=== PATIENT | male | born 1945 | race Caucasian/White ===

== ENCOUNTER → 2016-10-20 | Outpatient (REF) | payer MEDICARE ==
[~2016-10-20] MED LIST: /PANT40TA; ACET65TA; AVOD0.5C; BABY81CH; INSULIN LANTUS; KEFL250C; LISI20TA5; METO25TA2; METO5TAB2; NEOSSOL; NOVOINJ3; SIMV10TA2; THERGRAN; ZEST20TA4; ZOCO10TA
== END ==
LOC: M LABDRAWP 11:25
PROVIDERS: ATTEND Urology
DX: C61 Malignant neoplasm of prostate (principal)

== ENCOUNTER → 2016-12-21 | Outpatient (CLI) | payer MEDICARE ==
[~2016-12-21] VITALS: Ht 177.8 cm; Wt 86.2 kg
[~2016-12-21] MED LIST changes: +ASPI1TAB24 PO; +FINA5TAB2 PO; +GLIP2.5T2 PO; +LEVE1INJ5 SC; +LR 1,000 ML IV SCH; +METO50TA2 PO; +MULT1TAB10 PO; +PROPOFOL 200 MG/20 ML VIAL As Ordered ONE; +SIMV40TA2 PO; +lisinopril PO
--- NOTE | 2016-12-21 12:14 | ROOR ---
Patient Name: Andrew Ware Procedure Date: 12/21/2016 11:37 AM Date of : 1945 Age: 71 Room: [facility] Gender: Male Note Status: Finalized Procedure: Colonoscopy Indications: High risk colon cancer surveillance: Personal history of non-advanced adenoma, Last colonoscopy: October 2011 Providers: Job Avitia MD Referring MD: Mann Brasher MD Requesting Provider: Medicines: Monitored Anesthesia Care Complications: No immediate complications. Procedure: Pre-Anesthesia Assessment: - Prior to the procedure, a History and Physical was performed, and patient medications and allergies were reviewed. The patient is competent. The risks and benefits of the procedure and the sedation options and risks were discussed with the patient. All questions were answered and informed consent was obtained. Patient identification and proposed procedure were verified by the physician, the nurse and the anesthesiologist in the procedure room. Mental Status Examination: alert and oriented. Airway Examination: normal oropharyngeal airway and neck mobility. CV Examination: regular rate and rhythm. Prophylactic Antibiotics: The patient does not require prophylactic antibiotics. Prior Anticoagulants: The patient has taken no previous anticoagulant or antiplatelet agents. ASA Grade Assessment: II - A patient with mild systemic disease. After reviewing the risks and benefits, the patient was deemed in satisfactory condition to undergo the procedure. The anesthesia plan was to use monitored anesthesia care (MAC). Immediately prior to administration of medications, the patient was re-assessed for adequacy to receive sedatives. The heart rate, respiratory rate, oxygen saturations, blood pressure, adequacy of pulmonary ventilation, and response to care were monitored throughout the procedure. The physical status of the patient was re-assessed after the procedure. The Colonoscope was introduced through the anus and advanced to the cecum, identified by appendiceal orifice and ileocecal valve. The colonoscopy was performed without difficulty. The patient tolerated the procedure well. The quality of the bowel preparation was excellent. Findings: The perianal and digital rectal examinations were normal. A 3 mm polyp was found in the distal transverse colon. The polyp was sessile. The polyp was removed with a jumbo cold forceps. Resection and retrieval were complete. The exam was otherwise without abnormality. Impression: - One 3 mm polyp in the distal transverse colon, removed with a jumbo cold forceps. Resected and retrieved. - The examination was otherwise normal. Recommendation: - Discharge patient to home. - Resume previous diet. - Continue present medications. - Await pathology results. - Telephone endoscopist for pathology results in 10 days. Job Avitia MD 12/21/2016 12:14:06 PM Number of Addenda: 0 Note Initiated On: 12/21/2016 11:37 AM Estimated Blood Loss: Estimated blood loss was minimal.
[2016-12-21 12:35] VITALS: BP 147/92
== END | disposition home or self-care (01) ==
LOC: M OPP 10:20
PROVIDERS: ATTEND Surgery
DX: Z12.11 Encounter for screening for malignant neoplasm of colon (principal); D12.3 Benign neoplasm of transverse colon; I10 Essential (primary) hypertension; E11.9 Type 2 diabetes mellitus without complications; E78.00 Pure hypercholesterolemia, unspecified; K21.9 Gastro-esophageal reflux disease without esophagitis; Z79.899 Other long term (current) drug therapy; Z79.82 Long term (current) use of aspirin

== ENCOUNTER → 2017-01-31 | Outpatient (REF) | payer MEDICARE ==
[~2017-01-31] MED LIST changes: -LR 1,000 ML IV SCH; -PROPOFOL 200 MG/20 ML VIAL As Ordered ONE
[2017-01-31 12:16] LABS: MEAN CORPUSCULAR HEMOGLOBIN 29.4 pg (27.0-33.0); MEAN CORPUSCULAR HGB CONC 33.4 g/dl (32.0-36.5); MEAN CORPUSCULAR VOLUME 88.2 fl (80.0-96.0); RED CELL DISTRIBUTION WIDTH 13.7 % (11.5-14.5); WHITE BLOOD COUNT 6.6 K/mm3 (4.0-10.0)
[2017-01-31 12:38] LABS: ALBUMIN 3.4 GM/DL (3.2-5.2); ALBUMIN/GLOBULIN RATIO 1.17 (1.00-1.93); ALKALINE PHOSPHATASE 75 U/L (45-117); ALT/SGPT 13 U/L (12-78); ANION GAP 9 MEQ/L (8-16); AST/SGOT 21 U/L (15-37); BILIRUBIN,TOTAL 1.5 MG/DL (0.2-1.0); BLOOD UREA NITROGEN 25 MG/DL (7-18); CALCIUM LEVEL 8.9 MG/DL (8.8-10.2); CARBON DIOXIDE LEVEL 30 MEQ/L (21-32); CHLORIDE LEVEL 102 MEQ/L (98-107); GLOMERULAR FILTRATION RATE > 60.0 (>42); GLUCOSE, FASTING 180 MG/DL (83-110); POTASSIUM SERUM 4.1 MEQ/L (3.5-5.1); SODIUM LEVEL 141 MEQ/L (136-145); TOTAL PROTEIN 6.3 GM/DL (6.4-8.2)
== END ==
LOC: M SFHCPLAZ 08:10
PROVIDERS: ATTEND Internal Medicine
DX: I10 Essential (primary) hypertension (principal); Z85.46 Personal history of malignant neoplasm of prostate; E11.9 Type 2 diabetes mellitus without complications

== ENCOUNTER → 2017-03-11 | Outpatient (REF) | payer MEDICARE ==
[~2017-03-11] MED LIST changes: +ASPI-161 PO; -ASPI1TAB24 PO; -METO50TA2 PO; +METO50TA7 PO
[2017-03-11 11:43] LABS: MEAN CORPUSCULAR HEMOGLOBIN 29.5 pg (27.0-33.0); MEAN CORPUSCULAR HGB CONC 34.1 g/dl (32.0-36.5); MEAN CORPUSCULAR VOLUME 86.3 fl (80.0-96.0); RED CELL DISTRIBUTION WIDTH 13.8 % (11.5-14.5); WHITE BLOOD COUNT 6.4 K/mm3 (4.0-10.0)
[2017-03-11 11:44] LABS: ANION GAP 7 MEQ/L (8-16); BLOOD UREA NITROGEN 23 MG/DL (7-18); CALCIUM LEVEL 9.1 MG/DL (8.8-10.2); CARBON DIOXIDE LEVEL 31 MEQ/L (21-32); CHLORIDE LEVEL 106 MEQ/L (98-107); CREATININE FOR GFR 0.99 MG/DL (0.70-1.30); GLOMERULAR FILTRATION RATE > 60.0 (>42); GLUCOSE, FASTING 138 MG/DL (83-110); POTASSIUM SERUM 4.1 MEQ/L (3.5-5.1); SODIUM LEVEL 144 MEQ/L (136-145)
== END ==
LOC: M SFHCPLAZ 08:50
PROVIDERS: ATTEND Internal Medicine
DX: Z01.818 Encounter for other preprocedural examination (principal); Z85.46 Personal history of malignant neoplasm of prostate; I10 Essential (primary) hypertension; N20.0 Calculus of kidney

== ENCOUNTER → 2017-06-23 | Outpatient (REF) | payer MEDICARE ==
[2017-06-23 12:21] LABS: MEAN CORPUSCULAR HEMOGLOBIN 28.7 pg (27.0-33.0); MEAN CORPUSCULAR HGB CONC 33.1 g/dl (32.0-36.5); MEAN CORPUSCULAR VOLUME 86.7 fl (80.0-96.0); RED CELL DISTRIBUTION WIDTH 13.3 % (11.5-14.5)
[2017-06-23 12:57] LABS: ALBUMIN 3.4 GM/DL (3.2-5.2); ALBUMIN/GLOBULIN RATIO 1.06 (1.00-1.93); ALKALINE PHOSPHATASE 72 U/L (45-117); ALT/SGPT 12 U/L (12-78); ANION GAP 5 MEQ/L (8-16); AST/SGOT 16 U/L (15-37); BILIRUBIN,TOTAL 1.3 MG/DL (0.2-1.0); BLOOD UREA NITROGEN 26 MG/DL (7-18); CALCIUM LEVEL 9.1 MG/DL (8.8-10.2); CARBON DIOXIDE LEVEL 33 MEQ/L (21-32); CHLORIDE LEVEL 103 MEQ/L (98-107); CHOLESTEROL LEVEL 198 MG/DL (<200); CREATININE FOR GFR 1.13 MG/DL (0.70-1.30); GLOMERULAR FILTRATION RATE > 60.0 (>42); GLUCOSE, FASTING 114 MG/DL (83-110); MAGNESIUM LEVEL 1.9 MG/DL (1.8-2.4); POTASSIUM SERUM 4.3 MEQ/L (3.5-5.1); SODIUM LEVEL 141 MEQ/L (136-145); TOTAL PROTEIN 6.6 GM/DL (6.4-8.2); TRIGLYCERIDES LEVEL 180 MG/DL (<150)
== END ==
LOC: M SFHCPLAZ 08:18
PROVIDERS: ATTEND Internal Medicine
DX: E11.29 Type 2 diabetes mellitus with other diabetic kidney complication (principal); E78.00 Pure hypercholesterolemia, unspecified; I10 Essential (primary) hypertension; Z85.46 Personal history of malignant neoplasm of prostate

== ENCOUNTER → 2018-01-12 | Outpatient (REF) | payer MEDICARE ==
[2018-01-12 12:03] LABS: HEMATOCRIT 32.6 % (42.0-52.0); HEMOGLOBIN 10.8 g/dl (13.5-17.5); MEAN CORPUSCULAR HEMOGLOBIN 28.8 pg (27.0-33.0); MEAN CORPUSCULAR HGB CONC 33.1 g/dl (32.0-36.5); MEAN CORPUSCULAR VOLUME 86.9 fl (80.0-96.0); PLATELET COUNT, AUTOMATED 199 10^3/uL (150-450); RED BLOOD COUNT 3.75 10^6/uL (4.30-6.10); RED CELL DISTRIBUTION WIDTH 12.8 % (11.5-14.5); WHITE BLOOD COUNT 6.8 10^3/uL (4.0-10.0)
[2018-01-12 12:43] LABS: ALBUMIN 3.2 GM/DL (3.2-5.2); ALBUMIN/GLOBULIN RATIO 1.07 (1.00-1.93); ALKALINE PHOSPHATASE 64 U/L (45-117); ALT/SGPT 12 U/L (12-78); ANION GAP 5 MEQ/L (8-16); AST/SGOT 19 U/L (7-37); BILIRUBIN,TOTAL 0.9 MG/DL (0.2-1.0); BLOOD UREA NITROGEN 26 MG/DL (7-18); CALCIUM LEVEL 8.7 MG/DL (8.8-10.2); CARBON DIOXIDE LEVEL 29 MEQ/L (21-32); CHLORIDE LEVEL 107 MEQ/L (98-107); CHOLESTEROL LEVEL 122 MG/DL (<200); CHOLESTEROL RISK RATIO 2.711 (<5); GLOMERULAR FILTRATION RATE > 60.0 (>42); GLUCOSE, FASTING 144 MG/DL (70-100); HDL CHOLESTEROL 45 MG/DL (>40); LDL CHOLESTEROL 55.6 MG/DL (<100); MAGNESIUM LEVEL 1.9 MG/DL (1.8-2.4); NON-HDL-C 77 MG/DL; SODIUM LEVEL 141 MEQ/L (136-145); TOTAL PROTEIN 6.2 GM/DL (6.4-8.2); TRIGLYCERIDES LEVEL 107 MG/DL (<150)
[2018-01-12 14:15] LABS: ESTIMATED AVERAGE GLUCOSE 151 MG/DL (60-110); HEMOGLOBIN A1c 6.9 %
[2018-01-12 16:21] LABS: AMORPHOUS SEDIMENT LARGE (NEGATIVE); APPEARANCE, URINE TURBID (CLEAR); BACTERIA, URINE AUTO 1+ (NEGATIVE); BILIRUBIN, URINE AUTO NEGATIVE (NEGATIVE); BLOOD, URINE BLOOD NEGATIVE (NEGATIVE); CALCIUM OXALATE CRYSTALS MODERATE; COLOR, URINE AMBER (YELLOW); GLUCOSE, URINE (UA) AUTO NEGATIVE (NEGATIVE); KETONE, URINE AUTO NEGATIVE (NEGATIVE); LEUKOCYTE ESTERASE, URINE AUTO NEGATIVE (NEGATIVE); MUCUS, URINE SMALL (NEGATIVE); NITRITE, URINE AUTO NEGATIVE (NEGATIVE); PROTEIN, URINE AUTO 2+ mg/dL (NEGATIVE); RBC, URINE AUTO 1 /HPF (0-3); SQUAMOUS EPITHELIAL CELL UR AU 0 /HPF (0-6); UROBILINOGEN, URINE AUTO 0.2 mg/dL (0.0-2.0); WBC, URINE AUTO 3 /HPF (0-3)
[2018-01-12 16:56] LABS: MAU/CREAT RATIO 148.5 MCG/MG (0.0-30.0)
== END ==
LOC: M SFHCPLAZ 08:46
DX: Z86.010 Personal history of colon polyps (principal); K21.9 Gastro-esophageal reflux disease without esophagitis; I10 Essential (primary) hypertension; E11.29 Type 2 diabetes mellitus with other diabetic kidney complication; E78.00 Pure hypercholesterolemia, unspecified; R80.9 Proteinuria, unspecified
CPT/HCPCS: 83735

== ENCOUNTER → 2018-02-21 | Outpatient (REF) | payer MEDICARE | LOC: M LABDRAWP 11:49 | DX: Z85.46 Personal history of malignant neoplasm of prostate (principal); R31.0 Gross hematuria | CPT/HCPCS: 84153 ==

== ENCOUNTER → 2018-02-21 | Outpatient (REF) | payer MEDICARE | LOC: M SFHCPLAZ 09:11 | DX: Z85.46 Personal history of malignant neoplasm of prostate (principal); I10 Essential (primary) hypertension; E11.29 Type 2 diabetes mellitus with other diabetic kidney complication ==

== ENCOUNTER → 2018-07-24 | Outpatient (REF) | payer MEDICARE ==
[2018-07-24 12:03] LABS: HEMATOCRIT 35.3 % (42.0-52.0); HEMOGLOBIN 11.6 g/dl (13.5-17.5); MEAN CORPUSCULAR HEMOGLOBIN 28.9 pg (27.0-33.0); MEAN CORPUSCULAR HGB CONC 32.9 g/dl (32.0-36.5); PLATELET COUNT, AUTOMATED 214 10^3/uL (150-450); RED BLOOD COUNT 4.01 10^6/uL (4.30-6.10); RED CELL DISTRIBUTION WIDTH 12.8 % (11.5-14.5); WHITE BLOOD COUNT 8.6 10^3/uL (4.0-10.0)
[2018-07-24 12:21] LABS: ALBUMIN 3.2 GM/DL (3.2-5.2); ALBUMIN/GLOBULIN RATIO 0.97 (1.00-1.93); ALKALINE PHOSPHATASE 81 U/L (45-117); ALT/SGPT 13 U/L (12-78); ANION GAP 8 MEQ/L (8-16); AST/SGOT 16 U/L (7-37); BILIRUBIN,TOTAL 0.9 MG/DL (0.2-1.0); BLOOD UREA NITROGEN 29 MG/DL (7-18); CALCIUM LEVEL 8.5 MG/DL (8.8-10.2); CARBON DIOXIDE LEVEL 28 MEQ/L (21-32); CHLORIDE LEVEL 105 MEQ/L (98-107); CREATININE FOR GFR 1.41 MG/DL (0.70-1.30); GLOMERULAR FILTRATION RATE 52.5 (>42); GLUCOSE, FASTING 149 MG/DL (70-100); MAGNESIUM LEVEL 1.9 MG/DL (1.8-2.4); POTASSIUM SERUM 4.2 MEQ/L (3.5-5.1); SODIUM LEVEL 141 MEQ/L (136-145); TOTAL PROTEIN 6.5 GM/DL (6.4-8.2)
[2018-07-24 12:52] LABS: MAU/CREAT RATIO 134.6 MCG/MG (0.0-30.0)
[2018-07-24 14:56] LABS: ESTIMATED AVERAGE GLUCOSE 163 MG/DL (60-110); HEMOGLOBIN A1c 7.3 %
== END ==
LOC: M SFHCPLAZ 08:44
DX: Z85.46 Personal history of malignant neoplasm of prostate (principal); I10 Essential (primary) hypertension; E11.29 Type 2 diabetes mellitus with other diabetic kidney complication
CPT/HCPCS: 83735

== ENCOUNTER → 2018-07-24 | Outpatient (REF) | payer MEDICARE ==
[2018-07-24 12:19] LABS: PROSTATIC SPECIFIC AG MONITOR 0.1 NG/ML (< 4.0)
== END ==
LOC: M LABDRAWP 08:47
DX: Z85.46 Personal history of malignant neoplasm of prostate (principal)
CPT/HCPCS: 83735; 84153

== ENCOUNTER → 2019-02-01 | Outpatient (REF) | payer MEDICARE ==
[~2019-02-01] MED LIST changes: -/PANT40TA; +PROT1TAB2
== END ==
LOC: M LABDRAWP 11:38
PROVIDERS: ATTEND Nurse Practitioner Family
DX: Z85.46 Personal history of malignant neoplasm of prostate (principal)

== ENCOUNTER → 2019-04-20 | Outpatient (CLI) | payer MEDICARE ==
[~2019-04-20] MED LIST changes: -SIMV40TA2 PO; +SIMV40TA20 PO
[2019-04-20 19:31] LABS: BASO # 0.1 10^3/uL (0.0-0.2); BASO % 0.6 % (0.0-1.0); EOS # 0.1 10^3/uL (0.0-0.50); EOS % 1.7 % (0.0-3.0); HEMATOCRIT 35.3 % (42.0-52.0); HEMOGLOBIN 11.5 g/dl (13.5-17.5); LYMPH # 1.9 10^3/uL (1.5-4.5); LYMPH % 23.6 % (24.0-44.0); MEAN CORPUSCULAR HEMOGLOBIN 28.8 pg (27.0-33.0); MEAN CORPUSCULAR HGB CONC 32.6 g/dl (32.0-36.5); MEAN CORPUSCULAR VOLUME 88.5 fl (80.0-96.0); MONO # 0.6 10^3/uL (0.0-0.8); MONO % 6.9 % (0.0-5.0); NEUTROPHILS # 5.4 10^3/uL (1.8-7.7); PLATELET COUNT, AUTOMATED 190 10^3/uL (150-450); RED BLOOD COUNT 3.99 10^6/uL (4.30-6.10)
[2019-04-20 19:37] LABS: ALBUMIN 3.5 GM/DL (3.2-5.2); ALT/SGPT 14 U/L (12-78); BLOOD UREA NITROGEN 34 MG/DL (7-18); CALCIUM LEVEL 9.5 MG/DL (8.8-10.2); CARBON DIOXIDE LEVEL 29 MEQ/L (21-32); CHLORIDE LEVEL 105 MEQ/L (98-107); CREATININE FOR GFR 1.97 MG/DL (0.70-1.30); FREE T4 1.21 NG/DL (0.76-1.46); GLOMERULAR FILTRATION RATE 35.6 (>42); GLUCOSE, FASTING 195 MG/DL (70-100); POTASSIUM SERUM 4.1 MEQ/L (3.5-5.1); SODIUM LEVEL 141 MEQ/L (136-145); THYROID STIMULATING HORMONE 0.379 uIU/ML (0.358-3.740); TOTAL PROTEIN 6.7 GM/DL (6.4-8.2)
[2019-04-20 19:47] LABS: MONO REFLEX EBV COMP NEGATIVE (NEGATIVE)
[2019-04-24 00:06] LABS: EBV AB TO NUCLEAR ANTIGEN 32.8 U/mL (0.0-17.9); EBV VIRAL CAPSID AG IgG >600.0 U/mL (0.0-17.9); EBV VIRAL CAPSID AG IgM 45.2 U/mL (0.0-35.9); Lyme Disease IgG/IgM Antibodie <0.91 ISR (0.00-0.90); Lyme Disease IgM Ab Quantitati <0.80 index (0.00-0.79)
== END ==
LOC: M LABDRWAD 16:38
PROVIDERS: ATTEND Physician Assistant Medical
DX: R42 Dizziness and giddiness (principal); Z79.899 Other long term (current) drug therapy

== ENCOUNTER → 2019-04-27 | Outpatient (CLI) | payer MEDICARE ==
[~2019-04-27] MED LIST changes: +SIMV40TA2 PO; -SIMV40TA20 PO
--- NOTE | 2019-04-27 12:44 | REP ---
MRI of the brain without contrast Clinical indication: Disorientation, visual changes. Comparison: None Technique: MRI of the brain was performed without contrast utilizing sagittal T1 FLAIR, axial DWI, axial T2, axial FLAIR, axial T1 and axial GRE sequences. Findings: There is DWI hyperintense signal with associated T2 signal abnormality within the right parietal region out of proportion to degree of hypointensity on ADC maps, likely representing subacute infarction. There is gyri swelling and effacement of the overlying sulci. There is no midline shift. The basal cisterns are patent. The visualized flow voids are patent. There is minimal susceptibility artifact and associated T1 hyperintensity along the anterior margin of the infarct consistent with a small component of hemorrhage. There are tiny chronic lacunar infarcts within both cerebellar hemispheres. There is minimal periventricular capping. There is no extra-axial fluid collection. The right [place] ocular lens has been removed. There is a minimal T2 opacification of the right left frontal ethmoid air cells. There is a tiny mucous retention cyst or polyp within the right maxillary sinus and trace fluid within the right mastoid air cells. Impression: 1. Findings consistent with subacute right parietal infarct with mild local mass effect. No midline shift. Evidence of minimal linear hemorrhage along the anterior margin of the infarct. Findings reported to and acknowledged by Dr. Mann Brasher at 12:35 P.M. on 04/27/2019. 2. Chronic cerebellar lacunar infarcts. Electronically Signed by Sonia Pena MD 04/27/2019 12:35 P
== END ==
LOC: M PLARAD 09:22
PROVIDERS: ATTEND Internal Medicine
DX: R41.0 Disorientation, unspecified (principal); H53.9 Unspecified visual disturbance

== ENCOUNTER → 2019-04-30 | Outpatient (REF) | payer MEDICARE ==
[2019-04-30 12:41] LABS: ALBUMIN 3.3 GM/DL (3.2-5.2); BILIRUBIN,TOTAL 0.9 MG/DL (0.2-1.0); CALCIUM LEVEL 9.1 MG/DL (8.8-10.2); CREATININE FOR GFR 1.76 MG/DL (0.70-1.30); GLOMERULAR FILTRATION RATE 40.5 (>42); POTASSIUM SERUM 4.5 MEQ/L (3.5-5.1); TOTAL PROTEIN 6.5 GM/DL (6.4-8.2)
== END ==
LOC: M SFHCADAM 08:55
PROVIDERS: ATTEND Internal Medicine
DX: E11.29 Type 2 diabetes mellitus with other diabetic kidney complication (principal)

== ENCOUNTER → 2019-05-02 | Outpatient (CLI) | payer MEDICARE ==
--- NOTE | 2019-05-02 17:52 | REP ---
Bilateral carotid artery duplex ultrasound: Peak flow velocity analysis: RIGHT LEFT ICA Peak flow velocity cm/sec 70.4 59.7 ICA Diastolic flow velocity cm/sec 29.3 26.9 ICA/CCA Ratio 0.95 0.57 ECA Peak flow velocity cm/sec 45.9 59 CCA Peak flow velocity cm/sec 74 103.9 There is shallow atheromatous plaque in the bulbs bilaterally and there is shallow atheromatous plaque in the proximal internal carotid arteries bilaterally. The peak flow velocities are normal bilaterally. The findings indicate that there is less than 50% luminal narrowing bilaterally. There is no significant stenosis on the right on the left. There is antegrade flow in the vertebral arteries bilaterally. Electronically Signed by Won Rocha MD 05/02/2019 05:43 P
== END ==
LOC: M RAD 15:53
PROVIDERS: ATTEND Internal Medicine
DX: Z86.73 Personal history of transient ischemic attack (TIA), and cerebral infarction without residual deficits (principal)

== ENCOUNTER → 2019-07-11 | Outpatient (CLI) | payer MEDICARE ==
--- NOTE | 2019-07-11 18:43 | REP ---
PET/CT: History: Solitary pulmonary nodule. Comparisons: Comparison chest CT study is reviewed from June 26, 2019. TECHNIQUE: 49 minutes following the intravenous injection of a 8.97 mCi dose of F-18 FDG, three-dimensional PET scintigraphy is acquired from the skull base to the proximal thighs. Triplanar noncontrast CT scanning is acquired through the same anatomic range for attenuation correction, and image registration with scan parameters optimized to minimize radiation exposure to the patient. PET scintigraphy and CT datasets were fused and displayed on a workstation with multiplanar and projection display capability. PET/CT Findings: The recently identified nodule in the right upper lobe shows no discernible FDG accumulation. Maximum standard uptake value is 0.79. No other abnormal hypermetabolic pulmonary parenchymal uptake is seen. No abnormal hilar or mediastinal hypermetabolic uptake is observed. There is valvular calcification in the aortic valve. Head and neck soft tissues are unremarkable. In the abdomen and pelvis, there is no abnormal hypermetabolic uptake. Impression: Negative PET scintigraphy. The nodule identified in the right upper lobe is not hypermetabolic. CT followup is recommended. Electronically Signed by Jose A Swain MD 07/11/2019 07:11 P
== END ==
LOC: M PLARAD 10:14
PROVIDERS: ATTEND Internal Medicine
DX: R91.1 Solitary pulmonary nodule (principal)
CPT/HCPCS: 78815; A9552

== ENCOUNTER → 2019-08-13 | Outpatient (REF) | payer MEDICARE ==
[~2019-08-13] MED LIST changes: -SIMV40TA2 PO; +SIMV40TA20 PO
[2019-08-13 13:04] LABS: CALCIUM LEVEL 8.5 MG/DL (8.8-10.2); CREATININE FOR GFR 1.62 MG/DL (0.70-1.30); GLOMERULAR FILTRATION RATE 44.6 (>42); POTASSIUM SERUM 3.8 MEQ/L (3.5-5.1)
== END ==
LOC: M LABDRWAD 12:37
DX: S37.001A Unspecified injury of right kidney, initial encounter (principal)

== ENCOUNTER → 2019-09-26 | Outpatient (REF) | payer MEDICARE ==
[~2019-09-26] MED LIST changes: +CARV25TA PO; +CHLO125TA PO; +FLOM0.4C39 PO; +GLIP10TA PO; +GLUC500T PO; +LOMO2.5T PO; +METF-954 PO; +PAXI20TA29 PO; +PLAV1TAB2 PO
== END ==
LOC: M LABDRWAD 13:45
PROVIDERS: ATTEND Urology
DX: Z85.46 Personal history of malignant neoplasm of prostate (principal)

== ENCOUNTER → 2019-10-02 | Outpatient (REF) | payer MEDICARE ==
[~2019-10-02] MED LIST changes: -CARV25TA PO; -CHLO125TA PO; -FLOM0.4C39 PO; -GLIP10TA PO; -GLUC500T PO; -LOMO2.5T PO; -METF-954 PO; -PAXI20TA29 PO; -PLAV1TAB2 PO
[2019-10-02 17:18] LABS: CALCIUM LEVEL 8.9 MG/DL (8.8-10.2); CREATININE FOR GFR 1.69 MG/DL (0.70-1.30); GLOMERULAR FILTRATION RATE 42.4 (>42); POTASSIUM SERUM 4.3 MEQ/L (3.5-5.1)
[2019-10-02 17:23] LABS: BASO # 0.1 10^3/uL (0.0-0.2); BASO % 0.9 % (0.0-1.0); EOS # 0.2 10^3/uL (0.0-0.5); EOS % 3.3 % (0.0-3.0); HEMATOCRIT 29.6 % (42.0-52.0); HEMOGLOBIN 9.3 g/dl (13.5-17.5); LYMPH # 1.1 10^3/uL (1.5-5.0); MEAN CORPUSCULAR HEMOGLOBIN 27.8 pg (27.0-33.0); MEAN CORPUSCULAR HGB CONC 31.4 g/dl (32.0-36.5); MEAN CORPUSCULAR VOLUME 88.6 fl (80.0-96.0); MONO # 0.5 10^3/uL (0.0-0.8); MONO % 6.9 % (0.0-5.0); NEUTROPHILS # 4.8 10^3/uL (1.5-8.5); NEUTROPHILS % 72.6 % (36.0-66.0); PLATELET COUNT, AUTOMATED 142 10^3/uL (150-450); RED BLOOD COUNT 3.34 10^6/uL (4.30-6.10); WHITE BLOOD COUNT 6.6 10^3/uL (4.0-10.0)
== END ==
LOC: M LABDRWAD 16:41
PROVIDERS: ATTEND Internal Medicine Interventional Cardiology
DX: E78.5 Hyperlipidemia, unspecified (principal); I15.9 Secondary hypertension, unspecified

== ENCOUNTER 2019-10-18 12:31 | Outpatient (RCR) | payer MEDICARE ==
[~2019-10-18 12:31] MED LIST changes: -CARV25TA PO; -CHLO125TA PO; -FLOM0.4C39 PO; -GLIP10TA PO; -GLUC500T PO; -LOMO2.5T PO; -METF-954 PO; -PAXI20TA29 PO; -PLAV1TAB2 PO
[2019-10-18] MEDS ORDERED: CARV25TA PO (15:17)
[2019-10-18] MEDS ORDERED: CHLO125TA PO (15:17)
[2019-10-18] MEDS ORDERED: LOMO2.5T PO (15:17)
[2019-10-18] MEDS ORDERED: GLUC500T PO (15:17)
[2019-10-18] MEDS ORDERED: PAXI20TA29 PO (15:17)
[2019-10-18] MEDS ORDERED: GLIP10TA PO (15:17)
[2019-10-18] MEDS ORDERED: METF-954 PO (15:17)
[2019-10-18] MEDS ORDERED: PLAV1TAB2 PO (15:17)
[2019-10-18] MEDS ORDERED: FLOM0.4C39 PO (15:17)
--- NOTE | 2019-10-18 15:55 | CARECAPL ---
Assessment Account #s: Initial Assessment General Diagnoses: AVR Date of event: Oct 03, 2019 Physician: Freddy Malik Allergies: Coded Allergies: No Known Allergies (Verified , 12/14/16) Date Entered Program: Oct 18, 2019 Risk strat for cardiac event: High Exercise Date: Oct 18, 2019 Assessment: Initial Assessment Stages of change: Contemplate Exercise Prescription Plan TO EDUCATE AND BUILD ENDURANCE THROUGH MONITORED EXERCISE PROGRAM Modalities initiated: Treadmill (WILL ADD), Cardio-Strider (WILL ADD), Nustep (WILL ADD), Arm Aerometer (WILL ADD), Dumbells (WILL ADD), Recumbent Bike (WILL ADD) Frequency: 3 Duration (Minutes) 30 - 60 minutes total exercise a day. 15 - 20 work intervals in minutes. PRN rest intervals in minutes. Functional Capacity Goal Sustained Metabolic Equivalent of a task (MET) goal of 2.5-3.5 for 15-20 minutes. Intensity: 3-Moderate Progression (METS) Increase by: 0.5 METS every: 5 sessions TOLERATED Angina with ex: No Target Heart Rate REST + 35-40 Resistance Training: Yes Weight (pounds): 2 Reps: 8-12 Hypertension: Yes (CARVEDILOL) Hypertension controlled with: Medication Resting 159/71 Medications Scheduled Aspirin (Aspirin EC), 81 MG PO DAILY, (Reported) Carvedilol (Carvedilol), 25 MG PO BID, (Reported) Chlorthalidone (Chlorthalidone), 25 MG PO DAILY, (Reported) Clopidogrel Bisulfate (Plavix), 75 MG PO DAILY, (Reported) Finasteride (Finasteride), 5 MG PO DAILY, (Reported) Glipizide (Glipizide), 10 MG PO DAILY, (Reported) Insulin Detemir (Levemir Flextouch), 40 UNITS SC QAM, (Reported) Metformin HCl (Glucophage), 750 MG PO DAILY, (Reported) Paroxetine HCl (Paxil), 1 TAB PO DAILY, (Reported) Simvastatin (Simvastatin), 40 MG PO DAILY, (Reported) Tamsulosin HCl (Flomax), 1 CAP PO DAILY, (Reported) Scheduled PRN Diphenoxylate HCl/Atropine (Lomotil 2.5-0.025 mg Tablet), 1 TAB PO QID PRN for DIARRHEA, (Reported) Miscellaneous Medications Metformin HCl (Metformin HCl), MG PO, (Reported) Discontinued Medications Glipizide/Metformin HCl (Glipizide-Metformin 2.5-500 mg), 2 TAB PO BID, (Reported) Discontinued Reason: PCP discontinued med Metoprolol Tartrate (Metoprolol Tartrate), 50 MG PO DAILY, (Reported) Discontinued Reason: PCP discontinued med Multivitamins (Multivitamin Adults), 1 TAB PO DAILY, (Reported) Discontinued Reason: PCP discontinued med [lisinopril], 1 TAB PO DAILY, (Reported) Discontinued Reason: PCP discontinued med Med Change: No Education Goals Met: No Target Goals Individual exercise Rx (1) BP 140/90 or 130/80 if DM or CKD (1) Aerobic active 30+min 5 days per week (1) Nutrition Date: Oct 18, 2019 Assessment: Initial Assessment Stages of change: Contemplate Lipid- med/supplement SIMVASTATIN Med Change: No Diabetes Diabetes: Yes Fasting Blood Sugar: 212 HbA1c (%): 8.4 Diabetes medication METFORMIN,GLIPIZIDE, AND LEVEMIR INSULIN Monitor Blood Sugar at home: Yes Medication Change: No Random Blood Sugar: 212 Blood sugar in range: No Weight Management Weight (lbs): 194.6 Height (inches): 70 Waist Circumference (Inches): 40 BMI: 27.9 Weight goal: 185 Special Diet: low salt Diet Access Tool: Rate your plate Score: 45 Current Weight (pounds): 194.8 Weight Goal 185 Intervention Parts Runner Consult: No Nurse/patient discussion: Yes Dietary Goals HEART HEALTHY CHOICES/SMALLER PORTIONS Diet Class: Yes (WILL SEE ASSISTANT FINANCE MANAGER WHILE IN PROGRAM) Referral to Diabetes education: No Referral to lipid clinic: No Referral to weight mangement p: No Education Eating Healthy Target goal LDL-C<100 if triglycerides are >200 Non-HDL-C should be <130 (1) LDL-C<70 for high risk patients (4) HbA1c<7% (1) BMI<25 Waist cir<40in M/<35in F (1) Education Date: Oct 18, 2019 Assessment: Initial Assessment Learning Barriers: ready Knowledge Test Score: 8 Stages of change: Contemplate Family Support: Yes Tobacco use: No Quit: >6 months Tobacco Use Smokeless tobacco: No Intervention Referral to smoking cessation: No Individual education and couns: No Tobacco Adjunct: No Education class schedule given: No Attended education classes: No (QUIT SMOKING ) Target Goals Complete cessation of tobacco use (1). Psychosocial Date: Oct 18, 2019 Assessment: Initial Assessment Psych Test (Initial/Discharge) Tool Used: Other (PHQ-9 - DEPRESSION SCALE SENT TO PRIMARY MD, DR. MCKINNEY, WHO RECENTLY INCREASED HIS PAXIL PRESCRIPTION) Score: 24 Stages of change: Contemplate Intervention Physician Consult: No Physician Referral: No Psychotropic medication PAXIL 20 MG DAILY Med Change: No Stress Management Class: No Uses Stress Management Skills: Yes Target Goal Assess presence or absence of depression using a valid screening tool (1). Maximize coping skills (2). Positive support system (2). Patient/Program Goal Preventative Medication: Yes Aspirin, Yes Clopidogrel, Yes Beta blockade, Yes Statin/OTR lipid Lowering Fall Risk Assess: Yes (NOT A FALL RISK) Provider Assessment Session Number: 1 Provider Assessment: Proceed with rehab Gigi Cary RN Oct 18, 2019 15:55
== END 2019-11-10 ==
LOC: M CR 12:31
PROVIDERS: ATTEND Internal Medicine Cardiovascular Disease
DX: Z95.2 Presence of prosthetic heart valve (principal)

== ENCOUNTER → 2019-10-18 | Outpatient (CLI) | payer MEDICARE ==
[~2019-10-18] MED LIST changes: +CARV25TA PO; +CHLO125TA PO; +FLOM0.4C39 PO; +GLIP10TA PO; +GLUC500T PO; +LOMO2.5T PO; +METF-954 PO; +PAXI20TA29 PO; +PLAV1TAB2 PO
[2019-10-18 18:35] LABS: BASO # 0.1 10^3/uL (0.0-0.2); BASO % 0.8 % (0.0-1.0); EOS # 0.2 10^3/uL (0.0-0.5); EOS % 2.3 % (0.0-3.0); HEMATOCRIT 31.6 % (42.0-52.0); HEMOGLOBIN 9.5 g/dl (13.5-17.5); LYMPH # 1.1 10^3/uL (1.5-5.0); LYMPH % 15.2 % (24.0-44.0); MEAN CORPUSCULAR HEMOGLOBIN 26.6 pg (27.0-33.0); MEAN CORPUSCULAR HGB CONC 30.1 g/dl (32.0-36.5); MEAN CORPUSCULAR VOLUME 88.5 fl (80.0-96.0); MONO # 0.5 10^3/uL (0.0-0.8); MONO % 7.1 % (0.0-5.0); NEUTROPHILS # 5.5 10^3/uL (1.5-8.5); NEUTROPHILS % 74.1 % (36.0-66.0); PLATELET COUNT, AUTOMATED 184 10^3/uL (150-450); RED BLOOD COUNT 3.57 10^6/uL (4.30-6.10); WHITE BLOOD COUNT 7.4 10^3/uL (4.0-10.0)
--- NOTE | 2019-10-18 18:52 | REP ---
PA and lateral chest three views including two PA and single lateral views: Comparison is 07/18/2009. The lung gong are clear. Cardiac size is upper normal. There has been an interim transcatheter cardiac valve replacement. The dimitris, mediastinum, skeletal structures are unremarkable. Impression: Essentially negative PA and lateral chest. There has been interim transcatheter cardiac valve replacement. Electronically Signed by Won Rocha MD 10/18/2019 06:45 P
[2019-10-18 18:53] LABS: ERYTHROCYTE SEDIMENTATION RATE 32 mm/hr (0-20)
[2019-10-18 19:01] LABS: ALBUMIN 3.4 GM/DL (3.2-5.2); BILIRUBIN,TOTAL 1.5 MG/DL (0.2-1.0); CALCIUM LEVEL 9.3 MG/DL (8.8-10.2); CREATININE FOR GFR 1.71 MG/DL (0.70-1.30); GLOMERULAR FILTRATION RATE 41.8 (>42); MAGNESIUM LEVEL 2.4 MG/DL (1.8-2.4); POTASSIUM SERUM 3.7 MEQ/L (3.5-5.1); TOTAL PROTEIN 6.5 GM/DL (6.4-8.2)
[2019-10-19 11:33] LABS: PERCENT SATURATION 10.8 % (19.7-50.0)
[2019-10-19 12:41] LABS: FOLATE 11.8 NG/ML
== END ==
LOC: M WUC 17:29
PROVIDERS: ATTEND Internal Medicine Cardiovascular Disease
DX: I50.9 Heart failure, unspecified (principal); I35.9 Nonrheumatic aortic valve disorder, unspecified; D64.9 Anemia, unspecified; Z95.2 Presence of prosthetic heart valve

== ENCOUNTER → 2019-10-26 | Outpatient (REF) | payer MEDICARE ==
[~2019-10-26] MED LIST changes: +CARV25TA PO; +CHLO125TA PO; +FLOM0.4C39 PO; +GLIP10TA PO; +GLUC500T PO; +LOMO2.5T PO; +METF-954 PO; +PAXI20TA29 PO; +PLAV1TAB2 PO
[2019-10-26 13:16] LABS: ALBUMIN 3.3 GM/DL (3.2-5.2); CREATININE FOR GFR 1.67 MG/DL (0.70-1.30); GLOMERULAR FILTRATION RATE 42.9 (>42); MAGNESIUM LEVEL 2.4 MG/DL (1.8-2.4); PHOSPHORUS LEVEL 3.5 MG/DL (2.5-4.9); POTASSIUM SERUM 4.3 MEQ/L (3.5-5.1)
== END ==
LOC: M LABDRWAD 12:47
PROVIDERS: ATTEND Internal Medicine Cardiovascular Disease
DX: I11.0 Hypertensive heart disease with heart failure (principal); I50.9 Heart failure, unspecified

== ENCOUNTER → 2019-11-27 | Outpatient (REF) | payer MEDICARE ==
[2019-11-27 18:10] LABS: CALCIUM LEVEL 8.4 MG/DL (8.8-10.2); CREATININE FOR GFR 1.37 MG/DL (0.70-1.30); GLOMERULAR FILTRATION RATE 53.9 (>42); POTASSIUM SERUM 4.2 MEQ/L (3.5-5.1)
== END ==
LOC: M SHH 17:06
PROVIDERS: ATTEND Thoracic Surgery (Cardiothoracic Vascular Surgery)
DX: I35.0 Nonrheumatic aortic (valve) stenosis (principal)

== ENCOUNTER → 2019-11-29 | Outpatient (REF) | payer MEDICARE ==
[2019-11-29 16:52] LABS: CREATININE FOR GFR 1.73 MG/DL (0.70-1.30); GLOMERULAR FILTRATION RATE 41.2 (>42); POTASSIUM SERUM 4.4 MEQ/L (3.5-5.1)
== END ==
LOC: M SHH 15:45
PROVIDERS: ATTEND Nurse Practitioner
DX: I35.0 Nonrheumatic aortic (valve) stenosis (principal)

== ENCOUNTER → 2019-12-05 | Outpatient (REF) | payer MEDICARE ==
[2019-12-05 13:54] LABS: CALCIUM LEVEL 8.3 MG/DL (8.8-10.2); CREATININE FOR GFR 1.4 MG/DL (0.70-1.30); GLOMERULAR FILTRATION RATE 52.6 (>42); POTASSIUM SERUM 4.6 MEQ/L (3.5-5.1)
== END ==
LOC: M SHH 12:49
PROVIDERS: ATTEND Thoracic Surgery (Cardiothoracic Vascular Surgery)
DX: I35.0 Nonrheumatic aortic (valve) stenosis (principal)

== ENCOUNTER → 2020-01-01 | Outpatient (REF) | payer MEDICARE ==
[2020-01-01 13:02] LABS: HEMATOCRIT 34.3 % (42.0-52.0); HEMOGLOBIN 10.4 g/dl (13.5-17.5); MEAN CORPUSCULAR HEMOGLOBIN 25.3 pg (27.0-33.0); MEAN CORPUSCULAR HGB CONC 30.3 g/dl (32.0-36.5); MEAN CORPUSCULAR VOLUME 83.5 fl (80.0-96.0); PLATELET COUNT, AUTOMATED 238 10^3/uL (150-450); RED BLOOD COUNT 4.11 10^6/uL (4.30-6.10); WHITE BLOOD COUNT 8.2 10^3/uL (4.0-10.0)
[2020-01-01 13:35] LABS: ALBUMIN 2.8 GM/DL (3.2-5.2); CALCIUM LEVEL 9.1 MG/DL (8.8-10.2); CHOLESTEROL RISK RATIO 3.428 (<5); CREATININE FOR GFR 1.59 MG/DL (0.70-1.30); GLOMERULAR FILTRATION RATE 45.4 (>42); MAGNESIUM LEVEL 2.1 MG/DL (1.8-2.4); POTASSIUM SERUM 4.4 MEQ/L (3.5-5.1); TOTAL PROTEIN 6.4 GM/DL (6.4-8.2)
[2020-01-01 13:37] LABS: PTH INTACT 55.1 PG/ML (18.5-88.0)
[2020-01-01 13:58] LABS: MAU/CREAT RATIO 2892.6 MCG/MG (0.0-30.0)
[2020-01-01 14:21] LABS: HEMOGLOBIN A1c 7.2 %
== END ==
LOC: M SFHCADAM 08:48
PROVIDERS: ATTEND Internal Medicine
DX: I12.9 Hypertensive chronic kidney disease with stage 1 through stage 4 chronic kidney disease, or unspecified chronic kidney disease (principal); E11.29 Type 2 diabetes mellitus with other diabetic kidney complication; N18.3 Chronic kidney disease, stage 3 (moderate)

== ENCOUNTER → 2020-01-14 | Outpatient (REF) | payer MEDICARE ==
[2020-01-14 13:29] LABS: ALBUMIN 2.7 GM/DL (3.2-5.2); CALCIUM LEVEL 8.7 MG/DL (8.8-10.2); CREATININE FOR GFR 1.8 MG/DL (0.70-1.30); GLOMERULAR FILTRATION RATE 39.4 (>42); MAGNESIUM LEVEL 2.2 MG/DL (1.8-2.4); PHOSPHORUS LEVEL 3.4 MG/DL (2.5-4.9); POTASSIUM SERUM 4.5 MEQ/L (3.5-5.1)
== END ==
LOC: M LABDRWAD 12:32
PROVIDERS: ATTEND Internal Medicine Cardiovascular Disease
DX: I50.42 Chronic combined systolic (congestive) and diastolic (congestive) heart failure (principal)

== ENCOUNTER → 2020-01-15 | Outpatient (CLI) | payer MEDICARE ==
--- NOTE | 2020-01-15 16:08 | REP ---
CT CHEST WITHOUT IV CONTRAST: CT chest performed without IV contrast. Sagittal and coronal reconstruction images are performed. Comparison made with prior PET/CT 07/11/[address] chest from [facility] 06/26/2019. The 1.1 cm nodule in the right upper lobe is stable. No new nodule is seen. Two calcified granulomas are seen more inferiorly in the right lung. There is some minor interstitial fibrotic scarring in both lower lobes. No consolidating infiltrate is seen. There is mild atherosclerotic calcification of the thoracic aorta with no aneurysm. There is no axillary or mediastinal adenopathy. The heart is normal in size. There is no pleural or pericardial effusion. There are degenerative changes of the spine. Metallic clips are seen in the gallbladder fossa. Bilateral renal cysts are present. IMPRESSION: Stable nodule right upper lobe, 1.1 cm in diameter. No new nodule or adenopathy. Electronically Signed by Won An MD 01/15/2020 04:29 P
== END ==
LOC: M RAD 15:08
PROVIDERS: ATTEND Internal Medicine
DX: R91.8 Other nonspecific abnormal finding of lung field (principal)

== ENCOUNTER → 2020-03-05 | Outpatient (REF) | payer MEDICARE ==
[2020-03-05 13:04] LABS: BASO # 0.1 10^3/uL (0.0-0.2); BASO % 0.7 % (0.0-1.0); EOS # 0.2 10^3/uL (0.0-0.5); EOS % 3.1 % (0.0-3.0); HEMATOCRIT 33.6 % (42.0-52.0); HEMOGLOBIN 10.7 g/dl (13.5-17.5); LYMPH # 1.2 10^3/uL (1.5-5.0); LYMPH % 15.5 % (24.0-44.0); MEAN CORPUSCULAR HEMOGLOBIN 26.5 pg (27.0-33.0); MEAN CORPUSCULAR HGB CONC 31.8 g/dl (32.0-36.5); MEAN CORPUSCULAR VOLUME 83.2 fl (80.0-96.0); MONO # 0.5 10^3/uL (0.0-0.8); NEUTROPHILS # 5.6 10^3/uL (1.5-8.5); NEUTROPHILS % 74.2 % (36.0-66.0); PLATELET COUNT, AUTOMATED 168 10^3/uL (150-450); RED BLOOD COUNT 4.04 10^6/uL (4.30-6.10); WHITE BLOOD COUNT 7.5 10^3/uL (4.0-10.0)
[2020-03-05 13:38] LABS: ALBUMIN 2.7 GM/DL (3.2-5.2); BILIRUBIN,TOTAL 0.8 MG/DL (0.2-1.0); CALCIUM LEVEL 8.5 MG/DL (8.8-10.2); CREATININE FOR GFR 1.79 MG/DL (0.70-1.30); GLOMERULAR FILTRATION RATE 39.6 (>42); MAGNESIUM LEVEL 2.1 MG/DL (1.8-2.4); POTASSIUM SERUM 4.5 MEQ/L (3.5-5.1); TOTAL PROTEIN 5.8 GM/DL (6.4-8.2)
== END ==
LOC: M LABDRWAD 12:20
PROVIDERS: ATTEND Internal Medicine Cardiovascular Disease
DX: I35.9 Nonrheumatic aortic valve disorder, unspecified (principal); I50.32 Chronic diastolic (congestive) heart failure; I11.0 Hypertensive heart disease with heart failure; R94.31 Abnormal electrocardiogram [ECG] [EKG]

== ENCOUNTER → 2020-04-07 | Outpatient (REF) | payer MEDICARE ==
[2020-05-02 21:51] LABS: BASO # 0.1 10^3/uL (0.0-0.2); BASO % 0.7 % (0.0-1.0); EOS # 0.2 10^3/uL (0.0-0.5); EOS % 2.9 % (0.0-3.0); HEMATOCRIT 34.4 % (42.0-52.0); LYMPH # 1.3 10^3/uL (1.5-5.0); LYMPH % 17.8 % (24.0-44.0); MEAN CORPUSCULAR HEMOGLOBIN 27.7 pg (27.0-33.0); MEAN CORPUSCULAR VOLUME 86.6 fl (80.0-96.0); MONO # 0.4 10^3/uL (0.0-0.8); MONO % 5.8 % (0.0-5.0); NEUTROPHILS # 5.3 10^3/uL (1.5-8.5); NEUTROPHILS % 72.5 % (36.0-66.0); PLATELET COUNT, AUTOMATED 172 10^3/uL (150-450); RED BLOOD COUNT 3.97 10^6/uL (4.30-6.10); WHITE BLOOD COUNT 7.3 10^3/uL (4.0-10.0)
[2020-06-13 15:20] LABS: GLUCOSE, FASTING SEE SEPARATE REPORT MG/DL
== END ==
LOC: M LABDRWAD 09:19
PROVIDERS: ATTEND Internal Medicine Cardiovascular Disease
DX: I50.32 Chronic diastolic (congestive) heart failure (principal); R94.31 Abnormal electrocardiogram [ECG] [EKG]; I35.8 Other nonrheumatic aortic valve disorders; I11.0 Hypertensive heart disease with heart failure; Z95.2 Presence of prosthetic heart valve

== ENCOUNTER → 2020-06-10 | Outpatient (REF) | payer MEDICARE ==
[2020-06-10 14:47] LABS: ALBUMIN 2.7 GM/DL (3.2-5.2); CALCIUM LEVEL 8.7 MG/DL (8.8-10.2); CREATININE FOR GFR 1.79 MG/DL (0.70-1.30); GLOMERULAR FILTRATION RATE 39.6 (>42); POTASSIUM SERUM 4.5 MEQ/L (3.5-5.1)
== END ==
LOC: M LABDRWAD 12:38
PROVIDERS: ATTEND Internal Medicine Cardiovascular Disease
DX: I50.42 Chronic combined systolic (congestive) and diastolic (congestive) heart failure (principal); I11.0 Hypertensive heart disease with heart failure; N19 Unspecified kidney failure

== ENCOUNTER → 2020-06-16 | Outpatient (REF) | payer MEDICARE ==
[2020-06-16 19:09] LABS: COMPLEMENT C3 119 MG/DL (90-180); COMPLEMENT C4 22 MG/DL (10-40)
[2020-06-19 15:10] LABS: ANCA-ATYPICAL <1:20 titer (Neg:<1:20); ANTI DS-DNA AB Negative (Negative); CYTOPLASMIC NEUTROP AB ANCA-C <1:20 titer (Neg:<1:20); PERINUCLEAR AB ANCA-P <1:20 titer (Neg:<1:20)
== END ==
LOC: M LAB REF 18:28
PROVIDERS: ATTEND Internal Medicine Nephrology
DX: N18.30 Chronic kidney disease, stage 3 unspecified (principal); R80.9 Proteinuria, unspecified; R31.9 Hematuria, unspecified

== ENCOUNTER → 2020-06-23 | Outpatient (CLI) | payer MEDICARE ==
--- NOTE | 2020-06-26 10:55 | REP ---
LIMITED PELVIC BLADDER SONOGRAPHY HISTORY: Chronic kidney disease stage III. Frequency of urination. FINDINGS: Scanning through the abdominal wall demonstrates mild elevation of the bladder base from enlarged prostate. Prostate diameters on ____ scanning are 4.3 x 3.5 x 3.4 cm. Bladder yancey are smooth. Prevoid bladder volume is calculated at 105 mL. No bladder mass lesion is observed. Complete bladder emptying is observed postvoid. IMPRESSION: Mildly prominent prostate. Otherwise negative. MTDD
--- NOTE | 2020-06-26 13:28 | REP ---
RENAL SONOGRAPHY HISTORY: Chronic kidney disease stage III. Frequency of urination. FINDINGS: Renal cortical echogenicity pattern is normal and contours are smooth. No hydronephrosis is seen. Multiple bilateral renal cysts are observed. Right renal dimensions are 10.7 x 6.4 x 5.4 cm. The left kidney measures 11.9 x 5.3 x 5.6 cm. Left-sided renal cysts include a septated 5.4 cm cyst at the upper pole, a 3.2 cm cyst in the upper pole, and a 0.9 cm cyst in the lower pole. On the right, there are three upper pole cysts visible measuring 0.9, 3.4, and 1.2 cm in greatest diameter respectively. IMPRESSION: Bilateral renal cortical cysts. No mass or hydronephrosis is seen. MTDD
== END ==
LOC: M RAD 11:53
PROVIDERS: ATTEND Internal Medicine Nephrology
DX: N28.1 Cyst of kidney, acquired (principal); N18.32 Chronic kidney disease, stage 3b; R35.0 Frequency of micturition

== ENCOUNTER → 2020-06-23 | Outpatient (REF) | payer MEDICARE ==
[2020-06-23 13:54] LABS: ALBUMIN 2.7 GM/DL (3.2-5.2); CREATININE FOR GFR 2.1 MG/DL (0.70-1.30); GLOMERULAR FILTRATION RATE 32.9 (>42); MAGNESIUM LEVEL 2.3 MG/DL (1.8-2.4); PHOSPHORUS LEVEL 3.2 MG/DL (2.5-4.9); POTASSIUM SERUM 4.7 MEQ/L (3.5-5.1)
== END ==
LOC: M LABDRWAD 12:29
PROVIDERS: ATTEND Internal Medicine Cardiovascular Disease
DX: I50.43 Acute on chronic combined systolic (congestive) and diastolic (congestive) heart failure (principal)

== ENCOUNTER → 2020-07-03 | Outpatient (REF) | payer MEDICARE ==
[2020-07-03 18:41] LABS: CREATININE, URINE 69.5 MG/DL; URINE TOTAL PROTEIN 202.5 MG/DL (0-12)
[2020-07-03 20:23] LABS: CREATININE 24 HOUR, URINE 1077.2 MG/24HR (950-2500); TOTAL PROTEIN 24 HOUR URINE 3138.7 MG/24HR (50-150)
== END ==
LOC: M LAB REF 16:57
PROVIDERS: ATTEND Internal Medicine Nephrology
DX: N18.30 Chronic kidney disease, stage 3 unspecified (principal); R80.9 Proteinuria, unspecified

== ENCOUNTER → 2020-08-01 | Outpatient (REF) | payer MEDICARE ==
[2020-08-01 13:09] LABS: ALBUMIN 2.7 GM/DL (3.2-5.2); CALCIUM LEVEL 8.4 MG/DL (8.8-10.2); CREATININE FOR GFR 1.98 MG/DL (0.70-1.30); GLOMERULAR FILTRATION RATE 35.3 (>42); PHOSPHORUS LEVEL 2.8 MG/DL (2.5-4.9); POTASSIUM SERUM 4.8 MEQ/L (3.5-5.1)
== END ==
LOC: M LABDRWAD 12:41
PROVIDERS: ATTEND Internal Medicine Cardiovascular Disease
DX: I50.42 Chronic combined systolic (congestive) and diastolic (congestive) heart failure (principal)

== ENCOUNTER → 2020-09-03 | Outpatient (REF) | payer MEDICARE ==
[2020-09-03 13:19] LABS: ALBUMIN 2.9 GM/DL (3.2-5.2); CALCIUM LEVEL 8.5 MG/DL (8.8-10.2); CREATININE FOR GFR 2.15 MG/DL (0.70-1.30); GLOMERULAR FILTRATION RATE 32.1 (>42); PHOSPHORUS LEVEL 2.9 MG/DL (2.5-4.9); POTASSIUM SERUM 4.4 MEQ/L (3.5-5.1)
== END ==
LOC: M LABDRWAD 12:27
PROVIDERS: ATTEND Internal Medicine Cardiovascular Disease
DX: I50.42 Chronic combined systolic (congestive) and diastolic (congestive) heart failure (principal); I11.0 Hypertensive heart disease with heart failure

== ENCOUNTER → 2020-10-06 | Outpatient (CLI) | payer MEDICARE ==
--- NOTE | 2020-10-09 09:40 | SLEEPHOME ---
DATE: 10/06/2020 Ordered by: Freddy Malik MD Diagnostic home sleep testing was performed due to concern for the obstructive sleep apnea syndrome in this patient with a history of chronic Cor pulmonale. For testing, a nocturnal T3 respiratory monitoring device was used. Continuous record was made of pulse oxygen saturation, air flow, chest and abdominal stain and body position. 9 hours and 59 minutes of data were reviewed. There were 8 hours and 41 minutes marked as time in bed. During the interval marked time in the bed, there were 553 respiratory events identified of 10 seconds in duration or greater for a respiratory event index of 63.6. The events were mixed, 401 of the 553 events were central or mixed apneas. The remainder apneas were obstructive. The patient's baseline pulse rate was 58 beats per minute. Pulse rate ranged between 49 and 84. The baseline saturation was 92%, saturations fell to 79% and testing was performed in both the supine and non-supine positions. IMPRESSION: Abnormal home sleep testing with repetitive respiratory events and oxygen desaturations to 79% with a respiratory event index of 63.6. This is consistent with the obstructive sleep apnea syndrome. RECOMMENDATION: Given the frequency of central apneas, complex obstructive sleep apnea may be present and the patient should be encouraged to undergo formal sleep evaluation. In-lab pressure titration may involve the use of bilevel device and back rate due to the frequency of central events
== END ==
LOC: M SLEEP HO 09:53
PROVIDERS: ATTEND Internal Medicine Cardiovascular Disease
DX: I27.81 Cor pulmonale (chronic) (principal)

== ENCOUNTER → 2020-10-08 | Outpatient (REF) | payer MEDICARE ==
[2020-10-08 15:08] LABS: CHOLESTEROL RISK RATIO 3.784 (<5); PROSTATIC SPECIFIC AG MONITOR 0.13 NG/ML (< 4.00)
[2020-10-08 15:36] LABS: HEMOGLOBIN A1c 8.8 %
[2020-10-08 15:41] LABS: MAU/CREAT RATIO 1413.2 MCG/MG (0.0-30.0)
[2020-10-08 16:52] LABS: ALBUMIN 3.1 GM/DL (3.2-5.2); CALCIUM LEVEL 9.1 MG/DL (8.8-10.2); CREATININE FOR GFR 2.04 MG/DL (0.70-1.30); GLOMERULAR FILTRATION RATE 34.1 (>42); POTASSIUM SERUM 4.5 MEQ/L (3.5-5.1); TOTAL PROTEIN 6.6 GM/DL (6.4-8.2)
== END ==
LOC: M SFHCADAM 08:57
PROVIDERS: ATTEND Internal Medicine
DX: I12.9 Hypertensive chronic kidney disease with stage 1 through stage 4 chronic kidney disease, or unspecified chronic kidney disease (principal); N18.9 Chronic kidney disease, unspecified; E11.29 Type 2 diabetes mellitus with other diabetic kidney complication; E78.00 Pure hypercholesterolemia, unspecified; Z85.46 Personal history of malignant neoplasm of prostate; R80.9 Proteinuria, unspecified

== ENCOUNTER → 2021-01-14 | Outpatient (CLI) | payer MEDICARE ==
--- NOTE | 2021-01-14 09:35 | REP ---
INDICATION: LUNG NODULE. Patient gives history of prostate carcinoma. COMPARISON: Comparison prior chest CT studies are dated 15 Jan 2020 and 26 June 2019.. TECHNIQUE: Helical scanning is acquired. 3 mm axial images are generated. Coronal and sagittal MPR and coronal MIP images are generated. FINDINGS: There has been no change in the size of the cavitary nodule noted previously in the right upper lobe since the June 26, 2019 prior study. It measures 9 mm in greatest diameter. It showed cavitary change in the original scan of 26 June 2019. It was a solid nodule morphologically but unchanged in size on January 15, 2020. Cavitary changes of visible today in the nodule are identical to its appearance on 26 June 2019. No new pulmonary nodule is appreciated. There are granulomatous calcifications in the right lower lobe. Patient is status post aortic valve replacement. Vascular calcification/stent material in the coronary distribution. No pleural or pericardial effusion is seen. There are multiple bilateral renal cysts again noted. The pancreatic body and tail are markedly atrophic. 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 These findings are unchanged. Clips are noted in the gallbladder fossa. No mediastinal mass or adenopathy is seen. No bony destructive lesion is observed. IMPRESSION: Stable 9 mm cavitary nodule in the right upper lobe of the lung unchanged from the June 26, [address] study[address] Consider repeat CT study in 1 year. <Electronically signed by Ladarius Swain > 01/14/21 [id number]
== END ==
LOC: M RAD 08:21
PROVIDERS: ATTEND Internal Medicine
DX: R91.1 Solitary pulmonary nodule (principal)

== ENCOUNTER → 2021-04-06 | Outpatient (REF) | payer MEDICARE | LOC: M SFHCPLAZ 15:13 | PROVIDERS: ATTEND Internal Medicine | DX: Z53.9 Procedure and treatment not carried out, unspecified reason (principal) ==

== ENCOUNTER → 2021-04-06 | Outpatient (CLI) | payer MEDICARE ==
[2021-04-06 18:01] LABS: HEMOGLOBIN A1c 8.6 %
[2021-04-06 18:06] LABS: CHOLESTEROL RISK RATIO 3.773 (<5); PROSTATIC SPECIFIC AG MONITOR 0.14 NG/ML (< 4.00)
[2021-04-06 18:36] LABS: CREATININE, URINE 98.5 MG/DL; MAU/CREAT RATIO 1319.7 MCG/MG (0.0-30.0)
== END ==
LOC: M PLALAB 15:31
PROVIDERS: ATTEND Internal Medicine
DX: E11.29 Type 2 diabetes mellitus with other diabetic kidney complication (principal); E78.00 Pure hypercholesterolemia, unspecified

== ENCOUNTER 2021-06-22 10:51 | Emergency (ER) | payer MEDICARE ==
[~2021-06-22] VITALS: Ht 177.8 cm; Wt 98.6 kg
--- NOTE | 2021-06-22 14:06 | REP ---
INDICATION: R pain. COMPARISON: None. TECHNIQUE: Real-time sonographic evaluation of scrotum and contents. FINDINGS: The left testicle is smaller than the right. Right testicle measures 3.9 x 2.0 x 2.6 cm and left testicle 2.6 x 1.9 x 2.3 cm. There is no testicular mass or torsion, blood flow is seen in each testicle with duplex Doppler evaluation. There is enlargement of the right epididymis with increased Doppler flow compatible with right-sided epididymitis. There is a moderate complex hydrocele on the right several thin septations. There is a very small left hydrocele. IMPRESSION: Right epididymitis with moderate complex right hydrocele. <Electronically signed by Won An > 06/22/21 [id number]
[2021-06-22 14:59] LABS: BASO # 0.1 10^3/uL (0.0-0.2); BASO % 0.5 % (0.0-1.0); EOS # 0.2 10^3/uL (0.0-0.5); EOS % 2.6 % (0.0-3.0); HEMATOCRIT 34.4 % (42.0-52.0); HEMOGLOBIN 11.5 g/dl (13.5-17.5); LYMPH # 1.4 10^3/uL (1.5-5.0); LYMPH % 15.5 % (24.0-44.0); MEAN CORPUSCULAR HEMOGLOBIN 29.9 pg (27.0-33.0); MEAN CORPUSCULAR HGB CONC 33.4 g/dl (32.0-36.5); MEAN CORPUSCULAR VOLUME 89.4 fl (80.0-96.0); MONO # 0.6 10^3/uL (0.0-0.8); MONO % 6.3 % (2.0-8.0); NEUTROPHILS # 6.9 10^3/uL (1.5-8.5); NEUTROPHILS % 74.7 % (36.0-66.0); PLATELET COUNT, AUTOMATED 236 10^3/uL (150-450); RED BLOOD COUNT 3.85 10^6/uL (4.30-6.10); WHITE BLOOD COUNT 9.2 10^3/uL (4.0-10.0)
[2021-06-22 15:26] LABS: ALBUMIN 2.3 GM/DL (3.2-5.2); BILIRUBIN,DIRECT 0.2 MG/DL (0.0-0.2); BILIRUBIN,TOTAL 0.7 MG/DL (0.2-1.0); CALCIUM LEVEL 8.2 MG/DL (8.8-10.2); CREATININE FOR GFR 2.35 MG/DL (0.70-1.30); GLOMERULAR FILTRATION RATE 28.9 (>42); POTASSIUM SERUM 4.3 MEQ/L (3.5-5.1); TOTAL PROTEIN 6.3 GM/DL (6.4-8.2)
[2021-06-22] MEDS ORDERED: NS 1,000 ML IV ONE (16:40)
[2021-06-22] MEDS ORDERED: CIPR-249 PO (17:14)
[2021-06-22] MEDS ORDERED: CIPROFLOXACIN 500MG TABLET PO ONE (17:15)
[2021-06-22 18:18] VITALS: BP 152/76
[2021-06-22] MEDS ORDERED: ENTR1TAB4 (18:32)
[2021-06-22] MEDS ORDERED: TORS20TA2 (18:32)
[2021-06-22] MEDS ORDERED: AMLO1TAB24 (18:32)
[2021-06-24] MEDS ORDERED: CEPH500C PO (16:49)
== END 2021-06-22 18:34 | disposition home or self-care (01) ==
LOC: M ED 10:51
DX: N45.1 Epididymitis (principal); N39.0 Urinary tract infection, site not specified; N43.2 Other hydrocele; R79.89 Other specified abnormal findings of blood chemistry; I25.10 Atherosclerotic heart disease of native coronary artery without angina pectoris; R01.1 Cardiac murmur, unspecified; E11.9 Type 2 diabetes mellitus without complications; I10 Essential (primary) hypertension; E78.5 Hyperlipidemia, unspecified; K21.9 Gastro-esophageal reflux disease without esophagitis; K58.9 Irritable bowel syndrome, unspecified; Z86.73 Personal history of transient ischemic attack (TIA), and cerebral infarction without residual deficits; Z85.46 Personal history of malignant neoplasm of prostate; Z92.3 Personal history of irradiation; Z87.891 Personal history of nicotine dependence; Z79.82 Long term (current) use of aspirin; Z79.4 Long term (current) use of insulin; Z79.899 Other long term (current) drug therapy

== ENCOUNTER → 2021-07-09 | Outpatient (REF) | payer MEDICARE ==
[~2021-07-09] MED LIST changes: +AMLO1TAB24; +CEPH500C PO; +CIPR-249 PO; +ENTR1TAB4; +METF-1191 PO; -METF-954 PO; +TORS20TA2
[2021-07-09 17:44] LABS: APPEARANCE, URINE HAZY (CLEAR); BACTERIA, URINE AUTO NEGATIVE (NEGATIVE); BILIRUBIN, URINE AUTO NEGATIVE (NEGATIVE); BLOOD, URINE BLOOD NEGATIVE (NEGATIVE); COLOR, URINE AMBER (YELLOW); GLUCOSE, URINE (UA) AUTO 1+ mg/dL (NEGATIVE); KETONE, URINE AUTO NEGATIVE (NEGATIVE); LEUKOCYTE ESTERASE, URINE AUTO TRACE (NEGATIVE); NITRITE, URINE AUTO NEGATIVE (NEGATIVE); PROTEIN, URINE AUTO 3+ mg/dL (NEGATIVE); RBC, URINE AUTO 0 /HPF (0-3); SPECIFIC GRAVITY URINE AUTO 1.018 (1.002-1.035); SQUAMOUS EPITHELIAL CELL UR AU 1 /HPF (0-6); UROBILINOGEN, URINE AUTO 0.2 mg/dL (0.0-2.0); WBC, URINE AUTO 6 /HPF (0-3)
== END ==
LOC: M SMT 17:03
PROVIDERS: ATTEND Nurse Practitioner Women's Health
DX: N45.1 Epididymitis (principal)

== ENCOUNTER → 2021-11-24 | Outpatient (CLI) | payer MEDICARE ==
[2021-11-24 17:24] LABS: BASO # 0.1 10^3/uL (0.0-0.2); BASO % 0.8 % (0.0-1.0); EOS # 0.2 10^3/uL (0.0-0.5); EOS % 2.9 % (0.0-3.0); HEMATOCRIT 35.8 % (42.0-52.0); HEMOGLOBIN 11.8 g/dl (13.5-17.5); LYMPH # 1.5 10^3/uL (1.5-5.0); LYMPH % 18.9 % (24.0-44.0); MEAN CORPUSCULAR HEMOGLOBIN 28.8 pg (27.0-33.0); MEAN CORPUSCULAR VOLUME 87.3 fl (80.0-96.0); MONO # 0.5 10^3/uL (0.0-0.8); NEUTROPHILS # 5.6 10^3/uL (1.5-8.5); NEUTROPHILS % 71.1 % (36.0-66.0); PLATELET COUNT, AUTOMATED 191 10^3/uL (150-450); WHITE BLOOD COUNT 7.8 10^3/uL (4.0-10.0)
[2021-11-24 17:48] LABS: ALBUMIN 2.5 GM/DL (3.2-5.2); BILIRUBIN,TOTAL 0.7 MG/DL (0.2-1.0); CALCIUM LEVEL 8.4 MG/DL (8.8-10.2); CHOLESTEROL RISK RATIO 3.86 (<5); CREATININE FOR GFR 2.29 MG/DL (0.70-1.30); GLOMERULAR FILTRATION RATE 29.6 (>42); POTASSIUM SERUM 3.9 MEQ/L (3.5-5.1); PROSTATIC SPECIFIC AG MONITOR 0.11 NG/ML (< 4.00); TOTAL PROTEIN 5.8 GM/DL (6.4-8.2)
[2021-11-24 17:54] LABS: PTH INTACT 66.9 PG/ML (18.5-88.0)
[2021-11-24 18:11] LABS: CREATININE, URINE 37.4 MG/DL; MAU/CREAT RATIO 3422.4 MCG/MG (0.0-30.0)
[2021-11-24 19:59] LABS: HEMOGLOBIN A1c 8.5 %
== END ==
LOC: M PLALAB 15:05
PROVIDERS: ATTEND Internal Medicine
DX: N18.30 Chronic kidney disease, stage 3 unspecified (principal); I12.9 Hypertensive chronic kidney disease with stage 1 through stage 4 chronic kidney disease, or unspecified chronic kidney disease; E11.29 Type 2 diabetes mellitus with other diabetic kidney complication; E78.00 Pure hypercholesterolemia, unspecified; Z86.010 Personal history of colon polyps; Z85.46 Personal history of malignant neoplasm of prostate

== ENCOUNTER → 2021-12-16 | Outpatient (CLI) | payer MEDICARE ==
[2021-12-16 15:56] LABS: CALCIUM LEVEL 8.7 MG/DL (8.8-10.2); CREATININE FOR GFR 2.36 MG/DL (0.70-1.30); GLOMERULAR FILTRATION RATE 28.6 (>42); MAGNESIUM LEVEL 2.2 MG/DL (1.8-2.4); POTASSIUM SERUM 4.3 MEQ/L (3.5-5.1)
== END ==
LOC: M PLALAB 12:33
PROVIDERS: ATTEND Physician Assistant
DX: I50.42 Chronic combined systolic (congestive) and diastolic (congestive) heart failure (principal)

== ENCOUNTER → 2022-01-01 | Outpatient (REF) | payer MEDICARE ==
[2022-01-01 12:23] LABS: CALCIUM LEVEL 8.9 MG/DL (8.8-10.2); CREATININE FOR GFR 2.06 MG/DL (0.70-1.30); GLOMERULAR FILTRATION RATE 33.5 (>42); MAGNESIUM LEVEL 2.2 MG/DL (1.8-2.4)
[2022-01-01 12:35] LABS: PTH INTACT 104.7 PG/ML (18.5-88.0)
== END ==
LOC: M SFHCPLAZ 08:25
PROVIDERS: ATTEND Internal Medicine
DX: I12.9 Hypertensive chronic kidney disease with stage 1 through stage 4 chronic kidney disease, or unspecified chronic kidney disease (principal)

== ENCOUNTER → 2022-02-03 | Outpatient (CLI) | payer MEDICARE | LOC: M PLAIMG 09:33 | PROVIDERS: ATTEND Internal Medicine | DX: R91.1 Solitary pulmonary nodule (principal); J43.9 Emphysema, unspecified ==

== ENCOUNTER → 2022-04-06 | Outpatient (CLI) | payer MEDICARE ==
[2022-04-06 13:25] LABS: HEMATOCRIT 36.7 % (42.0-52.0); HEMOGLOBIN 12.2 g/dl (13.5-17.5); MEAN CORPUSCULAR HEMOGLOBIN 29.8 pg (27.0-33.0); MEAN CORPUSCULAR HGB CONC 33.2 g/dl (32.0-36.5); MEAN CORPUSCULAR VOLUME 89.7 fl (80.0-96.0); PLATELET COUNT, AUTOMATED 173 10^3/uL (150-450); RED BLOOD COUNT 4.09 10^6/uL (4.30-6.10); WHITE BLOOD COUNT 8.9 10^3/uL (4.0-10.0)
[2022-04-06 13:47] LABS: ALBUMIN 2.6 GM/DL (3.2-5.2); BILIRUBIN,TOTAL 0.9 MG/DL (0.2-1.0); C REACTIVE PROTEIN QUANTITATIV 0.3 MG/DL (0.00-0.30); CHOLESTEROL RISK RATIO 3.8 (<5); CREATININE FOR GFR 2.08 MG/DL (0.70-1.30); FREE T4 0.99 NG/DL (0.76-1.46); GLOMERULAR FILTRATION RATE 33.1 (>42); POTASSIUM SERUM 4.1 MEQ/L (3.5-5.1); THYROID STIMULATING HORMONE 1.22 uIU/ML (0.358-3.740); TOTAL PROTEIN 5.9 GM/DL (6.4-8.2)
[2022-04-06 14:32] LABS: MAU/CREAT RATIO 4220.7 MCG/MG (0.0-30.0); PTH INTACT 88.4 PG/ML (18.5-88.0); TOTAL 25(OH) VITAMIN D 24.2 NG/ML (30.0-100.0)
== END ==
LOC: M ADAMS 09:12
PROVIDERS: ATTEND Internal Medicine Hematology
DX: E11.29 Type 2 diabetes mellitus with other diabetic kidney complication (principal)

== ENCOUNTER → 2022-08-12 | Outpatient (REF) | payer MEDICARE ==
[~2022-08-12] MED LIST changes: +CLOP75TA99 PO; -PLAV1TAB2 PO
[2022-08-12 13:55] LABS: BASO # 0.1 10^3/uL (0.0-0.2); BASO % 0.7 % (0.0-1.0); EOS # 0.2 10^3/uL (0.0-0.5); HEMATOCRIT 35.2 % (42.0-52.0); HEMOGLOBIN 11.5 g/dl (13.5-17.5); LYMPH # 1.5 10^3/uL (1.5-5.0); LYMPH % 18.3 % (24.0-44.0); MEAN CORPUSCULAR HEMOGLOBIN 29.9 pg (27.0-33.0); MEAN CORPUSCULAR HGB CONC 32.7 g/dl (32.0-36.5); MEAN CORPUSCULAR VOLUME 91.7 fl (80.0-96.0); MONO # 0.5 10^3/uL (0.0-0.8); MONO % 6.5 % (2.0-8.0); NEUTROPHILS % 72.3 % (36.0-66.0); PLATELET COUNT, AUTOMATED 153 10^3/uL (150-450); RED BLOOD COUNT 3.84 10^6/uL (4.30-6.10); WHITE BLOOD COUNT 8.3 10^3/uL (4.0-10.0)
[2022-08-12 13:56] LABS: APPEARANCE, URINE MANUAL CLEAR (CLEAR); COLOR, URINE MANUAL YELLOW (YELLOW)
[2022-08-12 13:57] LABS: BILIRUBIN, URINE MANUAL NEGATIVE (NEGATIVE); BLOOD URINE MANUAL POSITIVE (NEGATIVE); GLUCOSE, URINE (UA) MANUAL 3+(500 MG/DL) mg/dL (NEGATIVE); KETONE, URINE MANUAL NEGATIVE (NEGATIVE); LEUKOCYTE ESTERASE, URINE MAN TRACE (NEGATIVE); NITRITE, URINE MANUAL NEGATIVE (NEGATIVE); PROTEIN, URINE MANUAL 3+ mg/dL (NEGATIVE); UROBILINOGEN, URINE MANUAL NORMAL (NORMAL)
[2022-08-12 14:41] LABS: BACTERIA, URINE SMALL AMOUNT; HYALINE CAST, URINE NONE SEEN /lpf (0-1); SQUAMOUS EPITHELIAL CELL URINE SMALL AMOUNT /hpf (SMALL AMT)
== END ==
LOC: M SFHCADAM 09:18
PROVIDERS: ATTEND Internal Medicine Hematology
DX: N18.32 Chronic kidney disease, stage 3b (principal); R80.9 Proteinuria, unspecified; N13.9 Obstructive and reflux uropathy, unspecified; Z86.010 Personal history of colon polyps

== ENCOUNTER → 2022-08-16 | Outpatient (CLI) | payer MEDICARE ==
[2022-08-16 11:43] LABS: C REACTIVE PROTEIN QUANTITATIV 0.4 MG/DL (<1.0)
[2022-08-16 11:45] LABS: ALBUMIN 2.4 G/DL (3.2-5.2); BILIRUBIN,TOTAL 0.4 MG/DL (0.3-1.2); CALCIUM LEVEL 7.9 MG/DL (8.3-10.6); CHOLESTEROL RISK RATIO 3.85 (<5); CREATININE FOR GFR 2.4 MG/DL (0.70-1.30); GLOMERULAR FILTRATION RATE 28.1 (>42); HDL CHOLESTEROL 42.8 MG/DL (>40); HEMATOCRIT 34.8 % (42.0-52.0); HEMOGLOBIN 11.1 g/dl (13.5-17.5); MEAN CORPUSCULAR HEMOGLOBIN 29.8 pg (27.0-33.0); MEAN CORPUSCULAR HGB CONC 31.9 g/dl (32.0-36.5); MEAN CORPUSCULAR VOLUME 93.3 fl (80.0-96.0); PLATELET COUNT, AUTOMATED 151 10^3/uL (150-450); POTASSIUM SERUM 4.4 MMOL/L (3.5-5.1); RED BLOOD COUNT 3.73 10^6/uL (4.30-6.10); TOTAL PROTEIN 5.2 G/DL (5.7-8.2)
[2022-08-16 11:48] LABS: FREE T4 1.22 NG/DL (0.89-1.76)
[2022-08-16 11:49] LABS: THYROID STIMULATING HORMONE 1.437 uIU/ML (0.55-4.78)
[2022-08-16 11:51] LABS: TOTAL 25(OH) VITAMIN D 26.2 NG/ML (20.0-100.0)
[2022-08-16 11:58] LABS: HEMOGLOBIN A1c 8.5 % (4.0-6.0)
[2022-08-16 12:51] LABS: MAU/CREAT RATIO 2248.5 MCG/MG (0.0-30.0)
== END ==
LOC: M PLALAB 08:18
PROVIDERS: ATTEND Internal Medicine Hematology
DX: E11.29 Type 2 diabetes mellitus with other diabetic kidney complication (principal); R80.9 Proteinuria, unspecified; N39.0 Urinary tract infection, site not specified; Z12.5 Encounter for screening for malignant neoplasm of prostate; Z79.899 Other long term (current) drug therapy
CPT/HCPCS: 36415; 80053; 80061; 82043; 82306; 82607; 83036; 84166; 84439; 84443; 85027; 86140; 87086; G0103

== ENCOUNTER → 2023-02-23 | Outpatient (CLI) | payer MEDICARE ==
[~2023-02-23] MED LIST changes: +INSU100I6 SC; -LEVE1INJ5 SC; -PAXI20TA29 PO; +PAXI20TA30 PO
[2023-02-23 14:30] LABS: HEMATOCRIT 38.4 % (42.0-52.0); HEMOGLOBIN 12.4 g/dl (13.5-17.5); MEAN CORPUSCULAR HEMOGLOBIN 29.4 pg (27.0-33.0); MEAN CORPUSCULAR HGB CONC 32.3 g/dl (32.0-36.5); PLATELET COUNT, AUTOMATED 177 10^3/uL (150-450); RED BLOOD COUNT 4.22 10^6/uL (4.30-6.10); WHITE BLOOD COUNT 8.8 10^3/uL (4.0-10.0)
[2023-02-23 14:31] LABS: C REACTIVE PROTEIN QUANTITATIV < 0.40 MG/DL (<1.0)
[2023-02-23 14:32] LABS: ALBUMIN 2.9 G/DL (3.2-5.2); ALKALINE PHOSPHATASE 94 U/L (46-116); ALT/SGPT 11 U/L (7.0-40); AST/SGOT 21 U/L (<34); BILIRUBIN,TOTAL 0.9 MG/DL (0.3-1.2); BLOOD UREA NITROGEN 46 MG/DL (9-23); CALCIUM LEVEL 8.5 MG/DL (8.3-10.6); CARBON DIOXIDE LEVEL 29 MMOL/L (20-31); CHLORIDE LEVEL 106 MMOL/L (98-107); CHOLESTEROL LEVEL 224 MG/DL (<200); CHOLESTEROL RISK RATIO 4.44 (<5); CREATININE FOR GFR 2.79 MG/DL (0.70-1.30); GLOMERULAR FILTRATION RATE 23.5 (>42); GLUCOSE, FASTING 195 MG/DL (74-106); HDL CHOLESTEROL 50.4 MG/DL (>40); LDL CHOLESTEROL 140.4 MG/DL (<100); NON-HDL-C 173.6 MG/DL; POTASSIUM SERUM 4.2 MMOL/L (3.5-5.1); SODIUM LEVEL 138 MMOL/L (136-145); TOTAL PROTEIN 6.1 G/DL (5.7-8.2); TRIGLYCERIDES LEVEL 166 MG/DL (<150)
[2023-02-23 14:33] LABS: FREE T4 1.24 NG/DL (0.89-1.76); THYROID STIMULATING HORMONE 0.843 uIU/ML (0.55-4.78); TOTAL 25(OH) VITAMIN D 41.7 NG/ML (20.0-100.0)
[2023-02-23 14:34] LABS: VITAMIN B12 LEVEL 907 PG/ML (211-911)
[2023-02-23 14:37] LABS: HEMOGLOBIN A1c 9.1 % (4.0-6.0)
[2023-02-23 15:00] LABS: CREATININE, URINE 83.3 MG/DL
[2023-02-23 15:14] LABS: MAU/CREAT RATIO 2361.3 MCG/MG (0.0-30.0)
== END ==
LOC: M PLALAB 10:01
PROVIDERS: ATTEND Internal Medicine Hematology
DX: E11.29 Type 2 diabetes mellitus with other diabetic kidney complication (principal); Z79.899 Other long term (current) drug therapy

== ENCOUNTER → 2023-06-01 | Outpatient (CLI) | payer MEDICARE ==
[2023-06-01 17:20] LABS: HEMATOCRIT 37.7 % (42.0-52.0); HEMOGLOBIN 12.1 g/dl (13.5-17.5); MEAN CORPUSCULAR HEMOGLOBIN 29.5 pg (27.0-33.0); MEAN CORPUSCULAR HGB CONC 32.1 g/dl (32.0-36.5); PLATELET COUNT, AUTOMATED 215 10^3/uL (150-450); WHITE BLOOD COUNT 7.8 10^3/uL (4.0-10.0)
[2023-06-01 17:32] LABS: ALBUMIN 2.9 G/DL (3.2-5.2); BILIRUBIN,TOTAL 0.8 MG/DL (0.3-1.2); CALCIUM LEVEL 8.8 MG/DL (8.3-10.6); CHOLESTEROL RISK RATIO 3.86 (<5); CREATININE FOR GFR 2.84 MG/DL (0.70-1.30); GLOMERULAR FILTRATION RATE 23.1 (>42); HDL CHOLESTEROL 51.5 MG/DL (>40); LDL CHOLESTEROL 115.5 MG/DL (<100); NON-HDL-C 147.5 MG/DL; POTASSIUM SERUM 4.1 MMOL/L (3.5-5.1); TOTAL PROTEIN 6.1 G/DL (5.7-8.2)
[2023-06-01 18:18] LABS: HEMOGLOBIN A1c 8.4 % (4.0-6.0)
== END ==
LOC: M PLALAB 16:04
PROVIDERS: ATTEND Internal Medicine Hematology
DX: E11.29 Type 2 diabetes mellitus with other diabetic kidney complication (principal)

== ENCOUNTER → 2023-07-19 | Outpatient (CLI) | payer MEDICARE ==
[2023-07-19 15:53] LABS: BASO % 0.4 % (0.0-1.0); EOS # 0.2 10^3/uL (0.0-0.5); EOS % 2.5 % (0.0-3.0); HEMATOCRIT 35.7 % (42.0-52.0); HEMOGLOBIN 11.7 g/dl (13.5-17.5); LYMPH # 1.4 10^3/uL (1.5-5.0); LYMPH % 15.1 % (24.0-44.0); MEAN CORPUSCULAR HGB CONC 32.8 g/dl (32.0-36.5); MEAN CORPUSCULAR VOLUME 91.5 fl (80.0-96.0); MONO # 0.6 10^3/uL (0.0-0.8); MONO % 6.9 % (2.0-8.0); NEUTROPHILS % 74.7 % (36.0-66.0); PLATELET COUNT, AUTOMATED 186 10^3/uL (150-450); WHITE BLOOD COUNT 9.3 10^3/uL (4.0-10.0)
[2023-07-19 16:21] LABS: ALBUMIN 2.8 G/DL (3.2-5.2); BILIRUBIN,TOTAL 0.8 MG/DL (0.3-1.2); CALCIUM LEVEL 8.2 MG/DL (8.3-10.6); CREATININE FOR GFR 2.94 MG/DL (0.70-1.30); GLOMERULAR FILTRATION RATE 22.2 (>42); POTASSIUM SERUM 4.5 MMOL/L (3.5-5.1); TOTAL PROTEIN 5.9 G/DL (5.7-8.2)
[2023-07-19 16:32] LABS: HEMOGLOBIN A1c 8.2 % (4.0-6.0)
== END ==
LOC: M PLALAB 14:15
PROVIDERS: ATTEND Internal Medicine Hematology
DX: E11.29 Type 2 diabetes mellitus with other diabetic kidney complication (principal)

== ENCOUNTER → 2023-10-18 | Outpatient (REF) | payer MEDICARE ==
[2023-10-18 16:32] LABS: BASO % 0.5 % (0.0-1.0); EOS # 0.2 10^3/uL (0.0-0.5); EOS % 1.7 % (0.0-3.0); HEMATOCRIT 35.4 % (42.0-52.0); HEMOGLOBIN 11.4 g/dl (13.5-17.5); LYMPH # 1.4 10^3/uL (1.5-5.0); LYMPH % 15.9 % (24.0-44.0); MEAN CORPUSCULAR HEMOGLOBIN 29.1 pg (27.0-33.0); MEAN CORPUSCULAR HGB CONC 32.2 g/dl (32.0-36.5); MEAN CORPUSCULAR VOLUME 90.3 fl (80.0-96.0); MONO # 0.4 10^3/uL (0.0-0.8); MONO % 4.8 % (2.0-8.0); NEUTROPHILS # 6.8 10^3/uL (1.5-8.5); NEUTROPHILS % 76.9 % (36.0-66.0); PLATELET COUNT, AUTOMATED 192 10^3/uL (150-450); RED BLOOD COUNT 3.92 10^6/uL (4.30-6.10); WHITE BLOOD COUNT 8.8 10^3/uL (4.0-10.0)
[2023-10-18 17:39] LABS: ALBUMIN 2.6 G/DL (3.2-5.2); BILIRUBIN,TOTAL 0.8 MG/DL (0.3-1.2); CALCIUM LEVEL 8.3 MG/DL (8.3-10.6); CHOLESTEROL RISK RATIO 3.1 (<5); CREATININE FOR GFR 2.82 MG/DL (0.70-1.30); GLOMERULAR FILTRATION RATE 23.2 (>42); HDL CHOLESTEROL 43.8 MG/DL (>40); LDL CHOLESTEROL 67.2 MG/DL (<100); NON-HDL-C 92.2 MG/DL; POTASSIUM SERUM 4.7 MMOL/L (3.5-5.1); TOTAL PROTEIN 5.8 G/DL (5.7-8.2)
[2023-10-18 20:20] LABS: HEMOGLOBIN A1c 9.2 % (4.0-6.0)
== END ==
LOC: M PLALAB 15:29
PROVIDERS: ATTEND Internal Medicine Hematology
DX: E11.29 Type 2 diabetes mellitus with other diabetic kidney complication (principal)

== ENCOUNTER → 2024-01-18 | Outpatient (CLI) | payer MEDICARE ==
[~2024-01-18] MED LIST changes: -ASPI-161 PO; +ASPI-615 PO
[2024-01-18 18:45] LABS: BASO # 0.1 10^3/uL (0.0-0.2); EOS # 0.2 10^3/uL (0.0-0.5); EOS % 3.2 % (0.0-3.0); HEMATOCRIT 31.7 % (42.0-52.0); HEMOGLOBIN 10.1 g/dl (13.5-17.5); LYMPH # 1.2 10^3/uL (1.5-5.0); LYMPH % 16.6 % (24.0-44.0); MEAN CORPUSCULAR HEMOGLOBIN 29.3 pg (27.0-33.0); MEAN CORPUSCULAR HGB CONC 31.9 g/dl (32.0-36.5); MEAN CORPUSCULAR VOLUME 91.9 fl (80.0-96.0); MONO # 0.5 10^3/uL (0.0-0.8); MONO % 7.4 % (2.0-8.0); NEUTROPHILS # 5.1 10^3/uL (1.5-8.5); NEUTROPHILS % 71.4 % (36.0-66.0); PLATELET COUNT, AUTOMATED 157 10^3/uL (150-450); RED BLOOD COUNT 3.45 10^6/uL (4.30-6.10); WHITE BLOOD COUNT 7.2 10^3/uL (4.0-10.0)
[2024-01-18 18:49] LABS: ALBUMIN 2.5 G/DL (3.2-5.2); BILIRUBIN,TOTAL 0.7 MG/DL (0.3-1.2); CALCIUM LEVEL 8.5 MG/DL (8.3-10.6); CREATININE FOR GFR 3.57 MG/DL (0.70-1.30); GLOMERULAR FILTRATION RATE 17.7 (>42); POTASSIUM SERUM 4.9 MMOL/L (3.5-5.1); TOTAL PROTEIN 5.6 G/DL (5.7-8.2)
[2024-01-18 18:50] LABS: THYROID STIMULATING HORMONE 1.177 uIU/ML (0.55-4.78)
[2024-01-18 18:51] LABS: TOTAL 25(OH) VITAMIN D 38.2 NG/ML (20.0-100.0)
== END ==
LOC: M PLALAB 14:42
PROVIDERS: ATTEND Internal Medicine Hematology
DX: E11.29 Type 2 diabetes mellitus with other diabetic kidney complication (principal); Z86.010 Personal history of colon polyps; Z79.899 Other long term (current) drug therapy

== ENCOUNTER 2024-02-03 07:18 | Outpatient (CLI) | payer MEDICARE ==
[~2024-02-03] VITALS: Ht 177.8 cm; Wt 95.4 kg
[~2024-02-03 07:18] MED LIST changes: +ALBUTEROL SULFATE 2.5MG/0.5ML INH NEB SOLN INH PRN; +EPINEPHrine INJ 1 MG/ML 1ML AMP IM PRN; +diphenhydrAMINE 50MG/ML VIAL IV PRN; +methylPREDNISolone 125MG 2ML VIAL IV PRN
[2024-02-03 07:20] VITALS: BP 145/68; O2SAT 97
[2024-02-03] MEDS: IRON SUCROSE 300 MG in NS 250 ML OVER 90 MIN. IV ONE (07:42)
[2024-02-03] MEDS ORDERED: NS 1,000 ML IV SCH (08:00)
[2024-02-03 09:32] VITALS: BP 150/70; O2SAT 95
== END 2024-02-03 09:35 | disposition home or self-care (01) ==
LOC: M INFU 07:18
PROVIDERS: ATTEND Internal Medicine Hematology
DX: D50.9 Iron deficiency anemia, unspecified (principal)
CPT/HCPCS: 96365; 96366; J1756

== ENCOUNTER 2024-02-13 09:30 | Outpatient (CLI) | payer MEDICARE ==
[~2024-02-13] VITALS: Ht 177.8 cm; Wt 95.5 kg
[2024-02-13 09:25] VITALS: BP 146/76; O2SAT 98
[~2024-02-13 09:30] MED LIST changes: +NS 1,000 ML IV SCH
[2024-02-13] MEDS: IRON SUCROSE 300 MG in NS 250 ML OVER 90 MIN. IV ONE (10:28)
[2024-02-13 12:10] VITALS: BP 149/81; O2SAT 95
== END 2024-02-13 12:10 ==
LOC: M INFU 09:30
PROVIDERS: ATTEND Internal Medicine Hematology
DX: E61.1 Iron deficiency (principal)
CPT/HCPCS: 96365; 96366; J1756

== ENCOUNTER → 2024-04-23 | Outpatient (CLI) | payer MEDICARE ==
[~2024-04-23] MED LIST changes: -ALBUTEROL SULFATE 2.5MG/0.5ML INH NEB SOLN INH PRN; -EPINEPHrine INJ 1 MG/ML 1ML AMP IM PRN; -NS 1,000 ML IV SCH; -diphenhydrAMINE 50MG/ML VIAL IV PRN; -methylPREDNISolone 125MG 2ML VIAL IV PRN
[2024-04-23 14:51] LABS: ALBUMIN 2.8 G/DL (3.2-5.2); BLOOD UREA NITROGEN 63 MG/DL (9-23); CALCIUM LEVEL 8.5 MG/DL (8.3-10.6); CARBON DIOXIDE LEVEL 28 MMOL/L (20-31); CHLORIDE LEVEL 105 MMOL/L (98-107); CREATININE FOR GFR 3.99 MG/DL (0.70-1.30); GLOMERULAR FILTRATION RATE 15.5 (>42); GLUCOSE, FASTING 197 MG/DL (74-106); POTASSIUM SERUM 3.8 MMOL/L (3.5-5.1); SODIUM LEVEL 140 MMOL/L (136-145)
[2024-04-23 14:53] LABS: HEPATITIS B SURFACE ANTIBODY NEGATIVE (POSITIVE)
[2024-04-23 14:55] LABS: COMPLEMENT C3 104.4 MG/DL (90.0-170.0); COMPLEMENT C4 21.6 MG/DL (12-36); RHEUMATOID FACTOR QUANT < 3.5 IU/ML (<14)
[2024-04-23 15:05] LABS: HEPATITIS B SURFACE ANTIGEN NEGATIVE (NEGATIVE)
[2024-04-23 15:16] LABS: CREATININE, URINE 83.8 MG/DL; CREATININE,RANDOM URINE 83.8 MG/DL
[2024-04-23 15:18] LABS: HIV 1&2 SCREEN NEGATIVE (NEGATIVE)
[2024-04-23 15:23] LABS: TOTAL PROTEIN,RANDOM URINE 479.6 MG/DL (0.0-14.0)
[2024-04-23 15:26] LABS: HEPATITIS C VIRUS ABY INDEX 0.03 INDEX (<0.8)
[2024-04-23 15:38] LABS: MAU/CREAT RATIO 3052.5 MCG/MG (0.0-30.0)
[2024-04-24 17:24] LABS: CRYOGLOBULINS NEGATIVE (NEGATIVE)
[2024-04-25 14:57] LABS: MYELOPEROXIDASE ANTIBODY < 1.0 AI (<1.0)
[2024-04-25 18:08] LABS: PR3 ANTIPROTEINASE ANTIBODIES <0.2 units (0.0-0.9)
[2024-04-27 00:02] LABS: ANCA SCREEN Negative (Negative)
[2024-05-01 15:56] LABS: ANTI DS-DNA AB NEGATIVE (NEGATIVE)
== END ==
LOC: M LABDRWAD 07:39
PROVIDERS: ATTEND Internal Medicine Nephrology
DX: R80.9 Proteinuria, unspecified (principal); Z11.59 Encounter for screening for other viral diseases

== ENCOUNTER → 2024-04-23 | Outpatient (REF) | payer MEDICARE ==
[2024-04-23 14:43] LABS: BASO # 0.1 10^3/uL (0.0-0.2); BASO % 0.8 % (0.0-1.0); EOS # 0.3 10^3/uL (0.0-0.5); EOS % 4.5 % (0.0-3.0); HEMATOCRIT 31.3 % (42.0-52.0); HEMOGLOBIN 10.1 g/dl (13.5-17.5); LYMPH # 1.2 10^3/uL (1.5-5.0); MEAN CORPUSCULAR HEMOGLOBIN 28.9 pg (27.0-33.0); MEAN CORPUSCULAR HGB CONC 32.3 g/dl (32.0-36.5); MEAN CORPUSCULAR VOLUME 89.4 fl (80.0-96.0); MONO # 0.5 10^3/uL (0.0-0.8); MONO % 6.8 % (2.0-8.0); NEUTROPHILS # 5.5 10^3/uL (1.5-8.5); NEUTROPHILS % 71.6 % (36.0-66.0); PLATELET COUNT, AUTOMATED 133 10^3/uL (150-450); WHITE BLOOD COUNT 7.6 10^3/uL (4.0-10.0)
[2024-04-23 14:49] LABS: C REACTIVE PROTEIN QUANTITATIV < 0.40 MG/DL (<1.0)
[2024-04-23 14:51] LABS: ALBUMIN 2.8 G/DL (3.2-5.2); ALKALINE PHOSPHATASE 120 U/L (46-116); ALT/SGPT 15 U/L (7.0-40); AST/SGOT 11 U/L (<34); BILIRUBIN,TOTAL 0.6 MG/DL (0.3-1.2); BLOOD UREA NITROGEN 62 MG/DL (9-23); CALCIUM LEVEL 8.4 MG/DL (8.3-10.6); CARBON DIOXIDE LEVEL 28 MMOL/L (20-31); CHLORIDE LEVEL 104 MMOL/L (98-107); CREATININE FOR GFR 3.94 MG/DL (0.70-1.30); GLOMERULAR FILTRATION RATE 15.8 (>42); GLUCOSE, FASTING 194 MG/DL (74-106); POTASSIUM SERUM 3.7 MMOL/L (3.5-5.1); SODIUM LEVEL 138 MMOL/L (136-145); TOTAL PROTEIN 5.8 G/DL (5.7-8.2)
[2024-04-23 14:52] LABS: FREE T4 1.06 NG/DL (0.89-1.76)
[2024-04-23 14:53] LABS: THYROID STIMULATING HORMONE 0.928 uIU/ML (0.55-4.78)
[2024-04-23 16:04] LABS: HEMOGLOBIN A1c 8.1 % (4.0-6.0)
== END ==
LOC: M LABDRWAD 14:20
PROVIDERS: ATTEND Internal Medicine Hematology
DX: E11.29 Type 2 diabetes mellitus with other diabetic kidney complication (principal)

== ENCOUNTER → 2024-04-24 | Outpatient (REF) | payer MEDICARE ==
[2024-04-27 13:49] LABS: TOTAL PROTEIN 24 HOUR URINE 5524.5 MG/24HR (50-80); URINE TOTAL PROTEIN 368.3 MG/DL (0-14)
== END ==
LOC: M LAB REF 11:46
PROVIDERS: ATTEND Internal Medicine Nephrology
DX: R80.9 Proteinuria, unspecified (principal)

== ENCOUNTER → 2024-04-30 | Outpatient (REF) | payer MEDICARE | LOC: M LABDRWAD 12:37 | PROVIDERS: ATTEND Internal Medicine Nephrology | DX: R80.9 Proteinuria, unspecified (principal) ==

== ENCOUNTER → 2024-06-28 | Outpatient (CLI) | payer MEDICARE ==
[2024-06-28 16:07] LABS: PERCENT SATURATION 26.4 % (19.7-50.0)
== END ==
LOC: M PLALAB 13:27
PROVIDERS: ATTEND Internal Medicine Hematology
DX: I10 Essential (primary) hypertension (principal)

== ENCOUNTER 2024-07-12 14:33 | Outpatient (CLI) | payer MEDICARE ==
[~2024-07-12] VITALS: Ht 177.8 cm; Wt 95.4 kg
[~2024-07-12 14:33] MED LIST changes: +ALBUTEROL SULFATE 2.5MG/0.5ML INH NEB SOLN INH PRN; +EPINEPHrine INJ 1 MG/ML 1ML AMP IM PRN; +NS 1,000 ML IV SCH; +diphenhydrAMINE 50MG/ML VIAL IV PRN; +methylPREDNISolone 125MG 2ML VIAL IV PRN
[2024-07-12 14:55] VITALS: BP 136/72; O2SAT 98
[2024-07-12] MEDS: IRON SUCROSE 300 MG in NS 250 ML IV ONE (15:38)
[2024-07-12 17:30] VITALS: BP 152/70; O2SAT 98
== END 2024-07-12 17:30 ==
LOC: M INFU 14:33
PROVIDERS: ATTEND Internal Medicine Hematology
DX: D50.8 Other iron deficiency anemias (principal)
CPT/HCPCS: 96365; 96366; J1756

== ENCOUNTER → 2024-07-12 | Outpatient (REF) | payer MEDICARE ==
[2024-07-12 13:01] LABS: CALCIUM LEVEL 8.9 MG/DL (8.3-10.6); CREATININE FOR GFR 3.75 MG/DL (0.70-1.30); GLOMERULAR FILTRATION RATE 16.7 (>42); POTASSIUM SERUM 5.1 MMOL/L (3.5-5.1)
== END ==
LOC: M SFHCPLAZ 09:47
PROVIDERS: ATTEND Internal Medicine Hematology
DX: E11.29 Type 2 diabetes mellitus with other diabetic kidney complication (principal); N18.4 Chronic kidney disease, stage 4 (severe)

== ENCOUNTER → 2024-07-17 | Outpatient (REF) | payer MEDICARE ==
[~2024-07-17] MED LIST changes: -ALBUTEROL SULFATE 2.5MG/0.5ML INH NEB SOLN INH PRN; -EPINEPHrine INJ 1 MG/ML 1ML AMP IM PRN; -NS 1,000 ML IV SCH; -diphenhydrAMINE 50MG/ML VIAL IV PRN; -methylPREDNISolone 125MG 2ML VIAL IV PRN
== END ==
LOC: M LABDRWAD 12:57
PROVIDERS: ATTEND Internal Medicine Nephrology
DX: R80.9 Proteinuria, unspecified (principal)

== ENCOUNTER 2024-07-26 14:45 | Outpatient (CLI) | payer MEDICARE ==
[~2024-07-26] VITALS: Ht 177.8 cm; Wt 86.4 kg
[2024-07-26 14:45] VITALS: BP 144/66; O2SAT 94
[~2024-07-26 14:45] MED LIST changes: +ALBUTEROL SULFATE 2.5MG/0.5ML INH NEB SOLN INH PRN; +EPINEPHrine INJ 1 MG/ML 1ML AMP IM PRN; +diphenhydrAMINE 50MG/ML VIAL IV PRN; +methylPREDNISolone 125MG 2ML VIAL IV PRN
[2024-07-26] MEDS ORDERED: NS 1,000 ML IV SCH (15:00)
[2024-07-26 15:10] VITALS: BP 150/80; O2SAT 97
[2024-07-26] MEDS: IRON SUCROSE 300 MG in NS 250 ML OVER 90 MIN. IV ONE (15:27)
== END 2024-07-26 17:10 ==
LOC: M INFU 14:45
PROVIDERS: ATTEND Internal Medicine Hematology
DX: D50.8 Other iron deficiency anemias (principal)
CPT/HCPCS: 96365; 96366; J1756

== ENCOUNTER → 2024-07-31 | Outpatient (CLI) | payer MEDICARE ==
[~2024-07-31] MED LIST changes: -ALBUTEROL SULFATE 2.5MG/0.5ML INH NEB SOLN INH PRN; -AMLO1TAB24; +AMLO1TAB24 PO; +AMOX500C PO; +BUME1TAB3 PO; +BUME2TAB3 PO; -EPINEPHrine INJ 1 MG/ML 1ML AMP IM PRN; +EZET10TA21 PO; +FARX1TAB3 PO; +FARX1TAB5; +NOXI1TAB PO; +OMEG10002 PO; +PARO30TA4; +TRES1INJ2 SC; -diphenhydrAMINE 50MG/ML VIAL IV PRN; -methylPREDNISolone 125MG 2ML VIAL IV PRN
== END ==
LOC: M PAL 09:56
PROVIDERS: ATTEND Nurse Practitioner Adult Health
DX: G89.29 Other chronic pain (principal); E87.70 Fluid overload, unspecified; R60.0 Localized edema; N18.4 Chronic kidney disease, stage 4 (severe); E11.29 Type 2 diabetes mellitus with other diabetic kidney complication; R06.09 Other forms of dyspnea; Z51.5 Encounter for palliative care; Z66 Do not resuscitate; Z85.46 Personal history of malignant neoplasm of prostate; Z86.73 Personal history of transient ischemic attack (TIA), and cerebral infarction without residual deficits; Z79.02 Long term (current) use of antithrombotics/antiplatelets; Z79.82 Long term (current) use of aspirin; Z79.4 Long term (current) use of insulin; Z79.84 Long term (current) use of oral hypoglycemic drugs; Z79.899 Other long term (current) drug therapy; Z95.5 Presence of coronary angioplasty implant and graft; Z80.1 Family history of malignant neoplasm of trachea, bronchus and lung; Z80.42 Family history of malignant neoplasm of prostate; Z87.891 Personal history of nicotine dependence

== ENCOUNTER 2024-08-01 13:12 | Emergency (ER) | payer MEDICARE ==
[~2024-08-01] VITALS: Ht 177.8 cm; Wt 100.0 kg
[~2024-08-01 13:12] MED LIST changes: -BUME2TAB3 PO; -FARX1TAB5; -PARO30TA4
[2024-08-01] MEDS ORDERED: PARO30TA4 (13:27)
[2024-08-01] MEDS ORDERED: FARX1TAB5 (13:27)
[2024-08-01 14:29] LABS: BASO # 0.1 10^3/uL (0.0-0.2); BASO % 0.6 % (0.0-1.0); EOS # 0.4 10^3/uL (0.0-0.5); EOS % 4.1 % (0.0-3.0); HEMATOCRIT 29.7 % (42.0-52.0); HEMOGLOBIN 9.8 g/dl (13.5-17.5); LYMPH # 0.8 10^3/uL (1.5-5.0); LYMPH % 8.9 % (24.0-44.0); MEAN CORPUSCULAR HEMOGLOBIN 29.3 pg (27.0-33.0); MEAN CORPUSCULAR VOLUME 88.7 fl (80.0-96.0); MONO # 0.5 10^3/uL (0.0-0.8); MONO % 5.6 % (2.0-8.0); NEUTROPHILS # 7.1 10^3/uL (1.5-8.5); NEUTROPHILS % 80.3 % (36.0-66.0); PLATELET COUNT, AUTOMATED 212 10^3/uL (150-450); RED BLOOD COUNT 3.35 10^6/uL (4.30-6.10); WHITE BLOOD COUNT 8.8 10^3/uL (4.0-10.0)
[2024-08-01 14:59] LABS: ALBUMIN 2.5 G/DL (3.2-5.2); BILIRUBIN,DIRECT 0.2 MG/DL (<0.4); BILIRUBIN,TOTAL 0.7 MG/DL (0.3-1.2); CALCIUM LEVEL 8.6 MG/DL (8.3-10.6); CREATININE FOR GFR 3.86 MG/DL (0.70-1.30); GLOMERULAR FILTRATION RATE 16.1 (>42); POTASSIUM SERUM 4.1 MMOL/L (3.5-5.1); TOTAL PROTEIN 6.4 G/DL (5.7-8.2)
[2024-08-01] MEDS ORDERED: BUME2TAB3 PO (15:39)
[2024-08-01 16:06] VITALS: BP 170/87; TEMP 95.9; O2SAT 95
[2024-08-01] MEDS: FUROSEMIDE 40MG/4ML VIAL IV ONE (16:06)
== END 2024-08-01 16:21 | disposition home or self-care (01) ==
LOC: M ED 13:12
DX: E87.70 Fluid overload, unspecified (principal); I12.9 Hypertensive chronic kidney disease with stage 1 through stage 4 chronic kidney disease, or unspecified chronic kidney disease; E11.9 Type 2 diabetes mellitus without complications; K21.9 Gastro-esophageal reflux disease without esophagitis; E78.5 Hyperlipidemia, unspecified; Z86.73 Personal history of transient ischemic attack (TIA), and cerebral infarction without residual deficits; Z79.82 Long term (current) use of aspirin; Z79.4 Long term (current) use of insulin; Z79.899 Other long term (current) drug therapy
CPT/HCPCS: 71045; 80048; 80076; 83690; 85025; 93005; 96374; 99284; J1940

== ENCOUNTER 2024-08-03 11:01 | Emergency (ER) | payer MEDICARE ==
[~2024-08-03] VITALS: Ht 177.8 cm; Wt 95.8 kg
[~2024-08-03 11:01] MED LIST changes: +BUME2TAB3 PO; +FARX1TAB5; +PARO30TA4
[2024-08-03 11:04] VITALS: TEMP 97.6
[2024-08-03 12:28] LABS: BASO # 0.1 10^3/uL (0.0-0.2); BASO % 0.9 % (0.0-1.0); EOS # 0.3 10^3/uL (0.0-0.5); EOS % 3.9 % (0.0-3.0); HEMATOCRIT 29.3 % (42.0-52.0); HEMOGLOBIN 9.7 g/dl (13.5-17.5); LYMPH # 0.8 10^3/uL (1.5-5.0); LYMPH % 9.6 % (24.0-44.0); MEAN CORPUSCULAR HEMOGLOBIN 29.1 pg (27.0-33.0); MEAN CORPUSCULAR HGB CONC 33.1 g/dl (32.0-36.5); MONO # 0.5 10^3/uL (0.0-0.8); MONO % 5.6 % (2.0-8.0); NEUTROPHILS # 6.6 10^3/uL (1.5-8.5); NEUTROPHILS % 79.6 % (36.0-66.0); PLATELET COUNT, AUTOMATED 213 10^3/uL (150-450); RED BLOOD COUNT 3.33 10^6/uL (4.30-6.10); WHITE BLOOD COUNT 8.2 10^3/uL (4.0-10.0)
[2024-08-03 12:43] LABS: ALBUMIN 2.6 G/DL (3.2-5.2); BILIRUBIN,DIRECT 0.2 MG/DL (<0.4); BILIRUBIN,TOTAL 0.6 MG/DL (0.3-1.2); CALCIUM LEVEL 8.6 MG/DL (8.3-10.6); CREATININE FOR GFR 3.81 MG/DL (0.70-1.30); GLOMERULAR FILTRATION RATE 16.4 (>42); POTASSIUM SERUM 4.2 MMOL/L (3.5-5.1); TOTAL PROTEIN 6.1 G/DL (5.7-8.2)
[2024-08-03 13:30] VITALS: BP 171/105
[2024-08-03 14:22] VITALS: O2SAT 74
== END 2024-08-03 14:23 | disposition home or self-care (01) ==
LOC: M ED 11:01
DX: E87.70 Fluid overload, unspecified (principal); E10.9 Type 1 diabetes mellitus without complications; D64.9 Anemia, unspecified; Z79.82 Long term (current) use of aspirin; Z79.4 Long term (current) use of insulin; Z79.899 Other long term (current) drug therapy

== ENCOUNTER → 2024-08-23 | Outpatient (CLI) | payer MEDICARE ==
[2024-08-23 14:48] LABS: HEMATOCRIT 29.3 % (42.0-52.0); HEMOGLOBIN 9.5 g/dl (13.5-17.5); MEAN CORPUSCULAR HEMOGLOBIN 29.1 pg (27.0-33.0); MEAN CORPUSCULAR HGB CONC 32.4 g/dl (32.0-36.5); MEAN CORPUSCULAR VOLUME 89.9 fl (80.0-96.0); PLATELET COUNT, AUTOMATED 180 10^3/uL (150-450); RED BLOOD COUNT 3.26 10^6/uL (4.30-6.10); WHITE BLOOD COUNT 10.8 10^3/uL (4.0-10.0)
[2024-08-23 15:02] LABS: ALBUMIN 2.6 G/DL (3.2-5.2); BILIRUBIN,TOTAL 0.7 MG/DL (0.3-1.2); CREATININE FOR GFR 4.54 MG/DL (0.70-1.30); GLOMERULAR FILTRATION RATE 13.4 (>42); POTASSIUM SERUM 4.3 MMOL/L (3.5-5.1); TOTAL PROTEIN 6.4 G/DL (5.7-8.2)
== END ==
LOC: M PLALAB 12:33
PROVIDERS: ATTEND Nurse Practitioner Adult Health
DX: N18.4 Chronic kidney disease, stage 4 (severe) (principal)

== ENCOUNTER → 2024-08-28 | Outpatient (CLI) | payer MEDICARE ==
[~2024-08-28] VITALS: Ht 177.8 cm; Wt 100.7 kg
[2024-08-28 15:10] VITALS: BP 153/79; O2SAT 95
== END ==
LOC: M PAL 14:57
PROVIDERS: ATTEND Nurse Practitioner Adult Health
DX: Z51.5 Encounter for palliative care (principal); N18.5 Chronic kidney disease, stage 5; R60.0 Localized edema; Z66 Do not resuscitate; Z79.82 Long term (current) use of aspirin; Z79.84 Long term (current) use of oral hypoglycemic drugs; Z79.899 Other long term (current) drug therapy; Z79.4 Long term (current) use of insulin